=== PATIENT | male | born 1965 | race Caucasian/White ===

== ENCOUNTER → 2017-06-05 | Outpatient (CLI) | payer OTHER ==
--- NOTE | 2017-06-05 09:32 | XR ---
EXAMINATION TYPE: XR cervical spine comp DATE OF EXAM: 06/05/2017 COMPARISON: NONE HISTORY: Neck pain TECHNIQUE: Four views are submitted. FINDINGS: The odontoid is intact. There are no compression deformities. The prevertebral soft tissue structur es are within normal limits. Hypertrophic spurring noted anteriorly. Alignment only documented to th e inferior margin of C6. Facet arthropathy at C5-6 and C6-C7. Mild degenerative disc disease at these levels. IMPRESSION: 1. Multilevel degenerative disc disease and facet arthropathy. See above consider MRI.
== END | disposition home or self-care (01) ==
LOC: RADXRMAIN 09:02
PROVIDERS: ATTEND Internal Medicine
DX: M50.322 Other cervical disc degeneration at C5-C6 level (principal); M46.92 Unspecified inflammatory spondylopathy, cervical region
CPT/HCPCS: 72050

== ENCOUNTER → 2017-07-05 | Outpatient (CLI) | payer OTHER ==
--- NOTE | 2017-07-05 10:44 | CT ---
EXAMINATION TYPE: CT cervical spine wo con DATE OF EXAM: 07/05/2017 COMPARISON: NONE HISTORY: pain CT DLP: 340.5 mGycm Automated exposure control for dose reduction was used. TECHNIQUE: CT scan of the cervical spine is obtained without contrast, axial images are obtained, sa gittal and coronal reformatted images are also reviewed. FINDINGS: Cervical vertebra have normal alignment. Disc spaces are fairly normal. There is mild anter ior spurring at C4-5 C5-6 C6-7. Facet joints are intact. Skull base is intact. There is no evidence o f a fracture. IMPRESSION: Mild degenerative disc changes. No fracture seen.
== END | disposition home or self-care (01) ==
LOC: RADCTMAIN 09:45
PROVIDERS: ATTEND Internal Medicine
DX: M47.812 Spondylosis without myelopathy or radiculopathy, cervical region (principal)
CPT/HCPCS: 72125

== ENCOUNTER → 2018-06-29 | Outpatient (CLI) | payer OTHER ==
--- NOTE | 2018-06-29 09:19 | US ---
EXAMINATION TYPE: US prostate transrectal DATE OF EXAM: 06/29/2018 COMPARISON: NONE CLINICAL HISTORY: N40.0 benign prostatic hyperplasia w/o lower urinary symptoms. Patient states docto r felt prostate was enlarged. No urinary frequency. This examination was performed using the transrectal probe. EXAM MEASUREMENTS: Gland Size: 4.9 x 4.7 x 2.7 cm Volume: 32.88 Predicted PSA: 3.95 Actual PSA (if available):2.4 Increased echogenicity seen in right prostate. Within the left lateral prostate apex there is a 3 x 3 mm hypoechoic area, appearing somewhat cystic. Diffuse heterogeneity of the central zone is noted wi th internal calcifications and heterogenous echotexture. IMPRESSION: 1. Left lateral apical peripheral zone 3 mm hypoechoic lesion and a well-defined hyperechoic right pe ripheral zone apical region. These findings are nonspecific. Correlate with trend in PSA to determine the need for biopsy. Alternatively prostate MRI could be used for further characterization. 2. Heterogenous and mildly enlarged prostate gland indicative of benign prostatic hyperplasia.
== END | disposition home or self-care (01) ==
LOC: RADUSMAIN 07:52
PROVIDERS: ATTEND Family Medicine
DX: N40.0 Benign prostatic hyperplasia without lower urinary tract symptoms (principal); N42.9 Disorder of prostate, unspecified
CPT/HCPCS: 76872

== ENCOUNTER → 2018-12-18 | Outpatient (CLI) | payer OTHER ==
--- NOTE | 2018-12-18 11:01 | XR ---
2 view abdomen HISTORY: Left upper quadrant pain 2 views the abdomen on 3 images No comparisons Lung bases are clear. There is no evident bowel obstruction or pneumoperitoneum. Some air-fluid level s are noted without bowel distention. No pathologic calcification. Bone mineralization is normal, the re is a probable bone island in the right ischium. IMPRESSION: There may be an underlying enteritis or ileus, follow-up as indicated.
== END ==
LOC: RADXRMAIN 10:29
PROVIDERS: ATTEND Family Medicine
DX: R10.12 Left upper quadrant pain (principal)
CPT/HCPCS: 74019

== ENCOUNTER 2019-01-22 11:46 | Day surgery (SDC) | payer OTHER ==
[2019-01-20 11:36] VITALS: BMI 23.8
--- NOTE | 2019-01-22 08:46 | P.GSHP ---
History of Present Illness H&P Date: 01/22/19 CHIEF COMPLAINT: Colon screen HISTORY OF PRESENT ILLNESS: The patient is a 53-year-old male who presents for colon screen. Lower endoscopy was offered for further evaluation and management. PAST MEDICAL HISTORY: Please see list. PAST SURGICAL HISTORY: Please see list. MEDICATIONS: Please see list. ALLERGIES: Please see list. SOCIAL HISTORY: No illicit drug use FAMILY HISTORY: No reports of Crohn disease or ulcerative colitis. REVIEW OF ORGAN SYSTEMS: CONSTITUTIONAL: No reports of fevers or chills. PHYSICAL EXAM: VITAL SIGNS: Stable GENERAL: Well-developed pleasant in no acute distress. HEENT: No scleral icterus. Extraocular movements grossly intact. Moist buccal mucosa. NECK: Supple without lymphadenopathy. CHEST: Unlabored respirations. Equal bilateral excursions. CARDIOVASCULAR: Regular rate and rhythm. Distal 2+ pulses. ABDOMEN: Soft, nontender, nondistended. MUSCULOSKELETAL: No clubbing, cyanosis, or edema. ASSESSMENT: 1. Colon screen. PLAN: 1. Recommend proceeding with a lower endoscopy Past Medical History Past Medical History: GERD/Reflux, Hyperlipidemia, Osteoarthritis (OA), Prostate Disorder Additional Past Medical History / Comment(s): "Prediabetic." History of Any Multi-Drug Resistant Organisms: None Reported Past Surgical History: Hernia Repair Additional Past Surgical History / Comment(s): Bilateral hernia repair, pilonodial cyst removed. Past Anesthesia/Blood Transfusion Reactions: No Reported Reaction Past Psychological History: No Psychological Hx Reported Smoking Status: Former smoker Past Alcohol Use History: Occasional Additional Past Alcohol Use History / Comment(s): Quit smoking 1 month ago, smoked since 14 yrs old, on and off, 1-1/2 pack per week. Past Drug Use History: None Reported - Past Family History Mother Family Medical History: No Reported History Medications and Allergies Home Medications Medication Instructions Recorded Confirmed Type Biotin (Unknown Dose) 1 tab PO DAILY 01/20/19 01/20/19 History Multivitamins, Thera [Multivitamin 1 tab PO DAILY 01/20/19 01/20/19 History (formulary)] Omeprazole Magnesium [PriLOSEC OTC] 20 mg PO BID 01/20/19 01/20/19 History Polyethylene Glycol 3350 [Miralax] 17 gm PO Q48H 01/20/19 01/20/19 History Allergies Allergy/AdvReac Type Severity Reaction Status Date / Time No Known Allergies Allergy Verified 01/20/19 11:38
[~2019-01-22 11:46] MED LIST: LACTATED RINGERS 1,000 ML IV SCH
[2019-01-22 12:19] VITALS: RESP 16; TEMP 97.1
[2019-01-22] MEDS ORDERED: LIDOCAINE 1% 20 ML VIAL (10MG/ML) FOR IV START INTRADERMA ONE (12:26)
[2019-01-22] MEDS ORDERED: MIDAZOLAM 2 MG/2 ML VIAL ONE (13:31)
[2019-01-22] MEDS ORDERED: PROPOFOL 10 MG/ML 20 ML VIAL IV ONE (13:31)
[2019-01-22] MEDS ORDERED: fentaNYL (PF) 50 MCG/ML 2 ML AMP ONE (13:31)
--- NOTE | 2019-01-22 13:58 | P.HPADDEND ---
H&P Addendum H&P Addendum Date: 01/22/19 Patient also reports Gastroesophageal reflux disease unresponsive to antacids. Benefits and risks of endoscopy described. We'll proceed with upper endoscopy for gastroesophageal reflux disease uncontrolled by medications.
--- NOTE | 2019-01-22 14:00 | P.PCN ---
Date of Procedure: 01/22/19 Description of Procedure: PREOPERATIVE DIAGNOSIS: Gastroesophageal reflux disease. POSTOPERATIVE DIAGNOSIS: Gastroesophageal reflux disease. OPERATION: Esophagogastroduodenoscopy with biopsies along antrum. SURGEON: Nazanin Mims MD ANESTHESIA: MAC. INDICATIONS: The patient is a 53-year-old male who presents with a history of reflux disease. Benefits and risks of the procedure were described. Informed consent was obtained. DESCRIPTION: The patient was brought into the endoscopy suite and laid in the left lateral decubitus position. An Olympus gastroscope was passed along the posterior oropharynx down to the distal esophagus where the squamocolumnar junction was encountered at 40 cm from the incisors. The stomach was entered and no bile reflux was found. Additional findings are listed below. Biopsies with cold forceps were obtained of the antrum. The first through third portion of the duodenum was examined and unremarkable. Retroflexion of the scope confirmed Hill grade 1 lower esophageal valve. The squamocolumnar junction demonstrated no LA grade A erosive esophagitis. The stomach was desufflated. The patient tolerated the procedure well. FINDINGS: Squamocolumnar junction 40 cm from the incisors. Diaphragmatic hiatus at 40 cm. Hill grade 1 lower esophageal valve. No LA grade A erosive esophagitis. No active duodenitis. Minimal gastritis RECOMMENDATIONS: Upper endoscopy as needed.
--- NOTE | 2019-01-22 14:03 | P.PCN ---
Date of Procedure: 01/22/19 Description of Procedure: PREOPERATIVE DIAGNOSIS: Colonoscopy screening, first POSTOPERATIVE DIAGNOSIS: Colonoscopy screening, first Descending colon polyp Sigmoid colon polyp OPERATION: Colonoscopy to the ileocecal valve and appendiceal orifice. Colonoscopy with multiple hot snare polypectomies SURGEON: Nazanin Mims MD. ANESTHESIA: MAC. INDICATIONS: The patient is a 53-year-old male who presents for his first colonoscopy screening. Benefits and risks were described and informed consent was obtained. DESCRIPTION OF PROCEDURE: The patient had undergone Gatorade, MiraLAX and Dulcolax prep. He had been brought into the operating room and laid in the left lateral decubitus position. After adequate intravenous sedation, the rectum was examined with 2% lidocaine jelly. Mild external hemorrhoids were encountered. The rectal tone was within normal limits. No lesions were palpated in the rectal vault. An Olympus colonoscope was advanced until the ileocecal valve and appendiceal orifice were clearly viewed. The prep was fair with visualization of the mucosal folds. The scope was removed with visualization of each mucosal fold. No scattered diverticulosis was encountered. Colonic polyps were found and snare polypectomy. No evidence of focal colitis was found. Retroflexion of the scope demonstrated grade 1 internal hemorrhoids without active bleeding or inflammation. The colon was desufflated. The patient had tolerated the procedure well. Withdrawal time was over 6 minutes. FINDINGS: Internal hemorrhoids, grade 1 External hemorrhoids, grade 2. No arteriovenous malformations. No sigmoid diverticulosis. Removal of 2 polyps: - Snare polypectomy 20 cm from the anal verge, 5 mm tubulovillous adenoma polyp. - Snare polypectomy 30 cm from the anal verge, 4 mm flat villous adenoma polyp. No focal colitis. RECOMMENDATIONS: Repeat colonoscopy 5 years, 2023 Plan - Discharge Summary Discharge Rx Participant: No New Discharge Prescriptions: No Action Polyethylene Glycol 3350 [Miralax] 17 gm PO Q48H Multivitamins, Thera [Multivitamin (formulary)] 1 tab PO DAILY Omeprazole Magnesium [PriLOSEC OTC] 20 mg PO BID Biotin (Unknown Dose) 1 tab PO DAILY Discharge Medication List Biotin (Unknown Dose) 1 tab PO DAILY 01/20/19 [History] Multivitamins, Thera [Multivitamin (formulary)] 1 tab PO DAILY 01/20/19 [History] Omeprazole Magnesium [PriLOSEC OTC] 20 mg PO BID 01/20/19 [History] Polyethylene Glycol 3350 [Miralax] 17 gm PO Q48H 01/20/19 [History] Follow up Appointment(s)/Referral(s): Nazanin Mims MD [STAFF PHYSICIAN] - 02/16/19 Patient Instructions/Handouts: Colorectal Polyps (DC), Gastroesophageal Reflux Disease (DC) Discharge Disposition: HOME SELF-CARE
[2019-01-22 14:32] VITALS: BP 128/84; PULSE 84
== END 2019-01-22 14:44 | disposition home or self-care (01) ==
LOC: ORWHC2ENDO 11:46
PROVIDERS: ATTEND Surgery Plastic and Reconstructive Surgery
DX: Z12.11 Encounter for screening for malignant neoplasm of colon (principal); K29.70 Gastritis, unspecified, without bleeding; K64.4 Residual hemorrhoidal skin tags; K63.5 Polyp of colon; K21.9 Gastro-esophageal reflux disease without esophagitis; E78.5 Hyperlipidemia, unspecified; M19.90 Unspecified osteoarthritis, unspecified site; K64.0 First degree hemorrhoids; Z87.891 Personal history of nicotine dependence; Z79.899 Other long term (current) drug therapy
CPT/HCPCS: 88305; 45385; 43239; J2250; J3010; J2704

== ENCOUNTER → 2019-02-04 | Outpatient (CLI) | payer OTHER ==
--- NOTE | 2019-02-04 15:03 | US ---
EXAMINATION TYPE: US gallbladder DATE OF EXAM: 02/04/2019 COMPARISON: NONE CLINICAL HISTORY: K81.9 Cholecystitis, R10.13 Epigastric pain. Cholecystitis. Epigastric pain x 2 mo nths. EXAM MEASUREMENTS: Liver Length: 13.8 cm Gallbladder Wall: 0.24 cm CBD: 0.62 cm Right Kidney: 10.8 x 3.9 x 5.5 cm Pancreas: wnl Liver: slightly coarse? Gallbladder: There is irregular wall thickening. Echogenic foci near wall showing, there is ringdow n artifact. Evidence for sonographic Estrada's sign: No. CBD: wnl Right Kidney: No stones or hydro seen. There is no ascites. IMPRESSION: There may be underlying hepatocellular disease, hepatic steatosis and adenomyomatosis of the gallbladder
--- NOTE | 2019-02-05 08:37 | NM ---
EXAMINATION TYPE: NM hepatobiliary w EF DATE OF EXAM: 02/04/2019 COMPARISON: Ultrasound gallbladder 02/04/2019 HISTORY: Cholecystitis, epigastric pain TECHNIQUE: After the intravenous administration of 4.7 mCi Tc 99m Mebrofenin hepatobiliary scintigrap hy is performed. Immediate images post injection. FINDINGS: There is satisfactory initial accumulation of tracer by the liver. The gallbladder is visualized wit hin a minutes. The small bowel activity is noted within 10 minutes. At one hour 8 ounces of oral en sure plus is given to mimic CCK and gallbladder ejection fraction is calculated at 66 %, in the berna l range. Therefore there is no scintigraphic evidence of cystic or common bile duct obstruction to s uggest acute cholecystitis or gallbladder dyskinesia. IMPRESSION: Somewhat unusual filling and emptying pattern noted of the radiopharmaceutical within the gallbladder corresponds to ultrasound images, somewhat bulbous appearance of the region of the neck of the gallbladder is suspected although ultrasound does not show an appropriate longitudinal view, t here may be folded or septated appearance of the gallbladder. CT scan of the abdomen may be of benefi t.
== END | disposition home or self-care (01) ==
LOC: RADUSMAIN 11:46
PROVIDERS: ATTEND Surgery Plastic and Reconstructive Surgery
DX: R93.2 Abnormal findings on diagnostic imaging of liver and biliary tract (principal); R10.13 Epigastric pain
CPT/HCPCS: 76705; 78226; A9537

== ENCOUNTER 2019-02-18 08:47 | Day surgery (SDC) | payer OTHER ==
[2019-02-17 08:53] VITALS: BMI 24.0
--- NOTE | 2019-02-18 07:56 | P.GSHP ---
History of Present Illness H&P Date: 02/18/19 CHIEF COMPLAINT: Cholecystitis HISTORY OF PRESENT ILLNESS: The patient is a 53-year-old male who presents with history of epigastric including right upper quadrant abdominal pain. He underwent diagnostic studies for the gallbladder. Separately his clinical picture was consistent with cholecystitis. Now he presents for surgical intervention. PAST MEDICAL HISTORY: Please see list PAST SURGICAL HISTORY: Please see list MEDICATIONS: Please see list ALLERGIES: Denies. SOCIAL HISTORY: No illicit drug use or recent tobacco use FAMILY HISTORY: Pertinent for gallbladder disease REVIEW OF ORGAN SYSTEMS: CONSTITUTIONAL: No reports of fevers or chills. HEENT: Denies any troubles with the vision or hearing. ENDOCRINE: No reports of hypothyroidism. No diabetes. RESPIRATORY: No recent pneumonias. CARDIOVASCULAR: Denies chest pain or palpitations GI: No blood in stools or constipation. MUSCULOSKELETAL: Has occasional joint pain including back pain. NEURO: No seizure disorders or headaches. No recent stroke. PSYCH: No depression or suicidal ideation. HEMATOLOGIC: No personal or family history of DVTs or pulmonary emboli. PHYSICAL EXAM: VITAL SIGNS: Afebrile vital signs stable GENERAL: Well-developed pleasant male in no acute distress. HEENT: No scleral icterus. Extraocular movements grossly intact. Moist buccal mucosa. NECK: Supple without lymphadenopathy. CHEST: Unlabored respirations. Equal bilateral excursions. CARDIOVASCULAR: Regular rate regular rhythm rhythm. Distal 2+ pulses. ABDOMEN: Soft, nondistended. Tender along the epigastrium and right upper quadrant. MUSCULOSKELETAL: No clubbing, cyanosis, or edema. NEURO : No focal or lateralizing signs. Cranial nerves II-12 within normal limits. PSYCH: Alert and oriented to person, place and time. SKIN: Well perfused. Good skin turgor. ASSESSMENT: 1. Epigastric and right upper quadrant abdominal pain 2. Chronic cholecystitis PLAN: 1. Will need a robotic cholecystectomy possible open. Benefits and risks were described. 2. Heparin for DVT prophylaxis 5000 units. 3. Antibiotic prophylaxis. Past Medical History Past Medical History: GERD/Reflux, Hyperlipidemia, Osteoarthritis (OA), Prostate Disorder Additional Past Medical History / Comment(s): "Prediabetic." History of Any Multi-Drug Resistant Organisms: None Reported Past Surgical History: Hernia Repair Additional Past Surgical History / Comment(s): Bilateral hernia repair, pilonodial cyst removed, colonoscopy. Past Anesthesia/Blood Transfusion Reactions: No Reported Reaction Smoking Status: Former smoker - Past Family History Mother Family Medical History: No Reported History Medications and Allergies Home Medications Medication Instructions Recorded Confirmed Type Biotin (Unknown Dose) 1 tab PO DAILY 01/20/19 02/17/19 History Multivitamins, Thera [Multivitamin 1 tab PO DAILY 01/20/19 02/17/19 History (formulary)] Allergies Allergy/AdvReac Type Severity Reaction Status Date / Time No Known Allergies Allergy Verified 02/17/19 08:48
[~2019-02-18 08:47] MED LIST changes: +DEXAMETHASONE SOD PHOSPHATE 10 MG/ML 1 ML VIAL IV ONE; +HEPARIN SODIUM,PORCINE 5,000 UNIT/ML 1 ML VIAL SQ ONE; +LIDOCAINE 1% 20 ML VIAL (10MG/ML) FOR IV START INTRADERMA PRN; +MIDAZOLAM 2 MG/2 ML VIAL IV PRN; +ONDANSETRON 4 MG/2 ML VIAL IVP ONE; +SCOPOLAMINE 1.5MG/72HR PATCH TRANSDERM ONE; +ceFAZolin IN SWFI 2 GM/20 ML SYRINGE IVP ONE
[2019-02-18] MEDS ORDERED: INDOCYANINE GREEN 25 MG VIAL IV STA (09:37)
[2019-02-18] MEDS ORDERED: BUPIVACAIN-EPI 0.5%-1:200,000 30 ML VIAL SQ ONE ×2 (09:57→11:59)
[2019-02-18 10:31] LABS: Basophils # (A) 0.1 k/uL (0-0.2); Basophils % (A) 1 %; Eosinophils # (A) 0.4 k/uL (0-0.7); Eosinophils % (A) 4 %; HCT 42.8 % (39.0-53.0); HGB 14.7 gm/dL (13.0-17.5); Lymphocytes # (A) 2.9 k/uL (1.0-4.8); Lymphocytes % (A) 30 %; MCHC 34.2 g/dL (31.0-37.0); MCV 84.8 fL (80.0-100.0); Mean Platelet Volume 7.9; Monocytes # (A) 0.5 k/uL (0-1.0); Monocytes % (A) 6 %; Neutrophils # (A) 5.3 k/uL (1.3-7.7); Neutrophils % (A) 57 %; Platelet Count 265 k/uL (150-450); RBC 5.05 m/uL (4.30-5.90); RDW 13.5 % (11.5-15.5); WBC 9.5 k/uL (3.8-10.6)
[2019-02-18 10:58] LABS: ALT 44 U/L (21-72); AST 29 U/L (17-59); Albumin 4.3 g/dL (3.5-5.0); Alkaline Phosphatase 79 U/L (38-126); Anion Gap 10 mmol/L; Blood Urea Nitrogen 20 mg/dL (9-20); Calcium 9.7 mg/dL (8.4-10.2); Carbon Dioxide 27 mmol/L (22-30); Chloride 104 mmol/L (98-107); Glucose 115 mg/dL (74-99); Potassium 4.6 mmol/L (3.5-5.1); Sodium 141 mmol/L (137-145); Total Bilirubin 1.2 mg/dL (0.2-1.3); Total Protein 7.1 g/dL (6.3-8.2)
[2019-02-18] MEDS ORDERED: INDOCYANINE GREEN 25 MG VIAL IV ONE (11:04)
[2019-02-18] MEDS ORDERED: ePHEDrine SULFATE/0.9% NACL/PF 50 MG/5 ML SYRINGE IV ONE (11:04)
[2019-02-18] MEDS ORDERED: GLYCOPYRROLATE 0.2 MG/ML 2 ML VIAL ONE (11:04)
[2019-02-18] MEDS ORDERED: DEXAMETHASONE SOD PHOS (MDV) 100 MG/10 ML VIAL ONE (11:04)
[2019-02-18] MEDS ORDERED: MIDAZOLAM 2 MG/2 ML VIAL ONE (11:04)
[2019-02-18] MEDS ORDERED: LIDOCAINE 1% INJ 10MG/ML (20 ML MDV) ONE (11:04)
[2019-02-18] MEDS ORDERED: ROCURONIUM BROMIDE 10 MG/ML 10 ML VIAL IV ONE (11:04)
[2019-02-18] MEDS ORDERED: fentaNYL (PF) 50 MCG/ML 2 ML AMP ONE (11:04)
[2019-02-18] MEDS ORDERED: NEOSTIGMINE 1 MG/ML 10 ML VIAL ONE (11:04)
[2019-02-18] MEDS ORDERED: PROPOFOL 10 MG/ML 20 ML VIAL IV ONE (11:04)
[2019-02-18] MEDS ORDERED: LACTATED RINGERS 1,000 ML IV ONE (12:20)
--- NOTE | 2019-02-18 12:48 | P.OP ---
Date of Procedure: 02/18/19 Description of Procedure: SURGEON: NAZANIN MIMS MD PREOPERATIVE DIAGNOSES: 1. Right upper quadrant abdominal pain 2. Chronic cholecystitis POSTOPERATIVE DIAGNOSES: 1. Right upper quadrant abdominal pain 2. Chronic cholecystitis 3. Difficult airway intubation. OPERATION: Robotic-assisted da Betty Xi laparoscopic cholecystectomy, multiport with FIREFLY ESTIMATED BLOOD LOSS: 10 mL. SPECIMENS REMOVED: Gallbladder. COMPLICATIONS: None. OPERATIVE FINDINGS: 1. Chronic cholecystitis with severe pericholecystic adhesions. INDICATIONS: The patient is a 53-year-old male who presents with cholelcystitis. Surgical intervention with a laparoscopic cholecystectomy was described at length including injury to the biliary tree, bleeding, infection, need for further surgery. Informed consent was obtained. Robotic assisted laparoscopic approach was described. Benefits and risks of the procedure including but not limited to bleeding, infection, injury to the biliary tree was described. Informed consent was obtained. DESCRIPTION OF PROCEDURE: Patient was brought to the operating room, placed in supine position. After general induction, the abdomen had been prepped and draped in standard sterile fashion. The robotic da Betty XI system was primed. After a timeout protocol was performed, the patient had been prepped and draped in standard sterile fashion. The patient was injected with indocyanine green. A 5 mm 0 degrees laparoscopic trocar entry was performed along the left upper quadrant. The abdomen insufflated to 15 mmHg pressure which was tolerated well. Diagnostic laparoscopy demonstrated no injury to bowel viscera or mesentery. The liver surface was unremarkable. Next, two 8 mm robotic ports were placed along the right upper abdomen. The camera 8-mm port was maintained along the epigastrium. Another 8 mm port was placed along the left upper abdominal wall after exchanging the 5 mm port. Please note that the ports were placed at least 10 to 15 cm away from the target anatomy of the gallbladder. The robot was docked along the left lateral abdomen. The patient was repositioned in reverse Trendelenburg position. Using a grasper for arm 3, a grasper for arm 4, including hook cautery for arm 1, the robotic system was docked and primed as described. Instruments were interchanged by the salon shampoo assistant including hook cautery, Bovie cautery and clip appliers. I had sat at the console. Moderate to severe pericholecystic adhesions were found and addressed with cautery over 10 minutes. The gallbladder fundus was retracted over the dome of the liver. Initial attention was brought to the infundibulum which was gently retracted in the inferior lateral approach. Using a grasper, the cystic duct including the cystic artery was carefully skeletonized. FIREFLY was used to identify the cystic artery and cystic structures. Large PLASTIC clips were used throughout the entire case. Using a clip photographic process attendant 2 clips were placed proximally, and 1 clip was placed distally along the cystic duct and then cauterized with the cautery. Again care was taken to avoid any injury to the biliary tree as the common bile duct was clearly visualized during this portion of dissection. Next, the cystic artery was similarly clipped and cauterized. Electro-Bovie cautery was used to remove the gallbladder from the hepatic fossa. Hemostasis was checked and found to be adequate. The robot was undocked. I re-scrubbed into the case. Using a 10 mm Endo Catch bag via the left upper quadrant incision, the specimen was removed from the abdominal cavity. All pneumoperitoneum instruments were evacuated from the abdominal cavity. The incisions were reapproximated using 4-0 Monocryl in an interrupted subcuticular fashion. Fascial defects were less than 8 mm in size. Please note along the trocar sites, local anesthetic was placed as a field block prior to insertion of all instruments. Liquid glue was applied to the skin. At the end of the procedure needle, sponge, and instrument count had been verified correct by the rn surgical. The patient was transferred to postanesthesia care unit in stable condition. Intraoperative films were shared with the patient's family who were pleased with the level of care. Console time 25 minutes Plan - Discharge Summary Discharge Rx Participant: Yes New Discharge Prescriptions: New Ibuprofen [Motrin] 600 mg PO Q8HR PRN #30 tab PRN Reason: pain HYDROcodone/APAP 5-325MG [Archer 5-325] 1 tab PO Q6HR PRN 3 Days #10 tab PRN Reason: Pain No Action Multivitamins, Thera [Multivitamin (formulary)] 1 tab PO DAILY Biotin (Unknown Dose) 1 tab PO DAILY Discharge Medication List Biotin (Unknown Dose) 1 tab PO DAILY 01/20/19 [History] Multivitamins, Thera [Multivitamin (formulary)] 1 tab PO DAILY 01/20/19 [History] HYDROcodone/APAP 5-325MG [Archer 5-325] 1 tab PO Q6HR PRN 3 Days #10 tab 02/18/19 [Rx] Ibuprofen [Motrin] 600 mg PO Q8HR PRN #30 tab 02/18/19 [Rx] Follow up Appointment(s)/Referral(s): Nazanin Mims MD [STAFF PHYSICIAN] - 02/23/19 Patient Instructions/Handouts: Laparoscopic Cholecystectomy (DC) Activity/Diet/Wound Care/Special Instructions: May shower. No bath tub soaks. No driving while on narcotics. Low fat diet this Friday.
[2019-02-18 12:54] VITALS: TEMP 98.1
[2019-02-18] MEDS: HYDROmorphone 0.5 MG/0.5 ML SYRINGE IVP PRN ×2 (12:59→13:17)
[2019-02-18 13:21] VITALS: RESP 16
[2019-02-18] MEDS ORDERED: TAMSULOSIN 0.4 MG CAP.ER.24H PO ONE (14:38)
[2019-02-18 17:24] VITALS: BP 148/87; PULSE 100
== END 2019-02-18 17:36 | disposition home or self-care (01) ==
LOC: OR 08:47
PROVIDERS: ATTEND Surgery Plastic and Reconstructive Surgery
DX: K81.1 Chronic cholecystitis (principal); K82.8 Other specified diseases of gallbladder; K21.9 Gastro-esophageal reflux disease without esophagitis; M19.90 Unspecified osteoarthritis, unspecified site; E78.5 Hyperlipidemia, unspecified; Z87.891 Personal history of nicotine dependence; Z79.899 Other long term (current) drug therapy
CPT/HCPCS: 88304; 80053; 85025; 47562; J2250; J1644; J1100 ×2; J2710; J2405; J2001; J3010; J2704; J1170; J0690

== ENCOUNTER → 2020-06-22 | Outpatient (CLI) | payer OTHER | LOC: LABWHC1 10:41 | PROVIDERS: ATTEND Urology | DX: R97.20 Elevated prostate specific antigen [PSA] (principal) | CPT/HCPCS: 36415; 84153 ==

== ENCOUNTER → 2020-12-25 | Outpatient (CLI) | payer OTHER ==
--- NOTE | 2020-12-25 10:08 | US ---
EXAMINATION TYPE: US abdomen limited DATE OF EXAM: 12/25/2020 COMPARISON: NONE CLINICAL HISTORY: 55-year-old male R10.12 left upper quad pain. TECHNIQUE: Assess for hernia at location of: Left upper quadrant. Targeted superficial scanning of t he left upper quadrant. Real-time scanning was performed by the non licensed nuclear equipment operator utilizing Valsalva and a dditional dynamic maneuvers to assess for hernia. FINDINGS: Lot Porter notes: No sonographic evidence for hernia at this time. IMPRESSION: Targeted scanning along the left upper quadrant at the site of pain shows no sonographic evidence for an abdominal wall hernia at this time.
== END | disposition home or self-care (01) ==
LOC: RADUSWWP 08:12
PROVIDERS: ATTEND Family Medicine
DX: R10.12 Left upper quadrant pain (principal)
CPT/HCPCS: 76705

== ENCOUNTER 2020-12-26 09:28 | Observation (INO) | payer OTHER ==
[2020-12-26] MEDS ORDERED: MORPHINE SULFATE 4 MG/ML SYRINGE IV STA (09:58)
[2020-12-26] MEDS ORDERED: ONDANSETRON 4 MG/2 ML VIAL IVP STA (09:58)
[2020-12-26] MEDS ORDERED: FAMOTIDINE 20 MG/2 ML VIAL IV STA (09:58)
[2020-12-26] MEDS ORDERED: SODIUM CHLORIDE 0.9% 1,000 ML IV STA (09:58)
--- NOTE | 2020-12-26 10:01 | ED ---
General Adult HPI - General Chief complaint: Abdominal Pain Stated complaint: Abdominal pain Time Seen by Provider: 12/26/20 09:39 Source: patient, RN notes reviewed Mode of arrival: wheelchair Limitations: no limitations - History of Present Illness Initial comments: Patient is a pleasant 55-year-old male presenting to the emergency Department with complaints of abdominal discomfort. Symptoms have been intermittent and not waxing and waning over the past couple of weeks. Discomfort moderate at this time. Discomfort goes from mild to moderate to severe. Sometimes food makes symptoms worse. Coffee made symptoms worse last night. Patient only drinks alcohol approximately once per week. Patient does have history of previous cholecystectomy. Occasional associated nausea. No vomiting. patient diarrhea. No fevers. No history of similar chronic abdominal discomfort. Discomfort started more in the left side however now is more diffuse. - Related Data Home Medications Medication Instructions Recorded Confirmed Multivitamins, Thera [Multivitamin 1 tab PO DAILY 01/20/19 12/26/20 (formulary)] Biotin 2500mcg 1 tab PO DAILY 12/26/20 12/26/20 Pantoprazole Sodium [Protonix] 40 mg PO DAILY 12/26/20 12/26/20 Previous Rx's Medication Instructions Recorded Ibuprofen [Motrin] 600 mg PO Q8HR PRN #30 tab 02/18/19 Allergies Allergy/AdvReac Type Severity Reaction Status Date / Time No Known Allergies Allergy Verified 12/26/20 10:54 Review of Systems ROS Statement: Those systems with pertinent positive or pertinent negative responses have been documented in the HPI. ROS Other: All systems not noted in ROS Statement are negative. Constitutional: Denies: fever Eyes: Denies: eye pain ENT: Denies: ear pain Respiratory: Denies: cough, dyspnea Cardiovascular: Denies: chest pain Endocrine: Denies: fatigue Gastrointestinal: Reports: as per HPI, abdominal pain, nausea. Denies: vomi ting, diarrhea, constipation Genitourinary: Denies: dysuria Musculoskeletal: Denies: back pain Skin: Denies: rash Neurological: Denies: weakness Past Medical History Past Medical History: GERD/Reflux, Hyperlipidemia, Osteoarthritis (OA), Prostate Disorder Additional Past Medical History / Comment(s): "Prediabetic." History of Any Multi-Drug Resistant Organisms: None Reported Past Surgical History: Hernia Repair Additional Past Surgical History / Comment(s): Bilateral hernia repair, pilonodial cyst removed, colonoscopy. Past Anesthesia/Blood Transfusion Reactions: No Reported Reaction Past Psychological History: No Psychological Hx Reported Smoking Status: Current every day smoker Past Alcohol Use History: Occasional Past Drug Use History: None Reported - Past Family History Mother Family Medical History: No Reported History General Exam Limitations: no limitations General appearance: alert, in no apparent distress Head exam: Present: normocephalic Eye exam: Present: normal appearance Neck exam: Present: normal inspection Respiratory exam: Present: normal lung sounds bilaterally Cardiovascular Exam: Present: regular rate, normal rhythm Expanded Peripheral pulses: 2+: Posterior Tibialis (R), Posterior Tibialis (L) GI/Abdominal exam: Present: soft, tenderness (Mild to moderate tenderness lower abdomen and epigastrium.), normal bowel sounds. Absent: distended, guarding, rebound, rigid, pulsatile mass Extremities exam: Present: normal inspection. Absent: pedal edema, calf tenderness Neurological exam: Present: alert Psychiatric exam: Present: normal affect, normal mood Skin exam: Present: normal color Course Vital Signs 12/26/20 12/26/20 09:35 11:15 Temperature 98.5 F Pulse Rate 94 93 Respiratory 18 18 Rate Blood Pressure 167/82 131/79 O2 Sat by Pulse 99 100 Oximetry EKG Findings - EKG Comments: EKG Findings:: Normal sinus rhythm and 90. ID 132. QRS 78. QT 344. QTC 420. Normal axis. Normal QRS. No acute ST change. Medical Decision Making - Medical Decision Making Patient reevaluated and resting comfortably in bed. Abdomen exam is soft with mild diffuse tenderness. Patient states he still feels lousy. Case discussed with Dr. Pringle, who will admit covering for Dr. Reveles. Gastroenterology will be placed on consult - Lab Data Result diagrams: 12/26/20 10:17 12/26/20 10:17 Lab Results 12/26/20 12/26/20 12/26/20 Range/Units 10:17 10:17 10:17 WBC 10.6 (3.8-10.6) k/uL RBC 5.40 (4.30-5.90) m/uL Hgb 16.4 (13.0-17.5) gm/dL Hct 47.5 (39.0-53.0) % MCV 88.0 (80.0-100.0) fL MCH 30.3 (25.0-35.0) pg MCHC 34.5 (31.0-37.0) g/dL RDW 12.6 (11.5-15.5) % Plt Count 252 (150-450) k/uL MPV 6.7 Neutrophils % 71 % Lymphocytes % 19 % Monocytes % 4 % Eosinophils % 3 % Basophils % 1 % Neutrophils # 7.5 (1.3-7.7) k/uL Lymphocytes # 2.1 (1.0-4.8) k/uL Monocytes # 0.5 (0-1.0) k/uL Eosinophils # 0.3 (0-0.7) k/uL Basophils # 0.1 (0-0.2) k/uL PT 10.3 (9.0-12.0) sec INR 1.0 (<1.2) APTT 23.3 (22.0-30.0) sec Sodium (137-145) mmol/L Potassium (3.5-5.1) mmol/L Chloride (98-107) mmol/L Carbon Dioxide (22-30) mmol/L Anion Gap mmol/L BUN (9-20) mg/dL Creatinine (0.66-1.25) mg/dL Est GFR (CKD-EPI)AfAm (>60 ml/min/1.73 sqM) Est GFR (CKD-EPI)NonAf (>60 ml/min/1.73 sqM) Glucose (74-99) mg/dL Calcium (8.4-10.2) mg/dL Total Bilirubin (0.2-1.3) mg/dL AST (17-59) U/L ALT (4-49) U/L Alkaline Phosphatase (38-126) U/L Creatine Kinase (55-170) U/L Troponin I (0.000-0.034) ng/mL Total Protein (6.3-8.2) g/dL Albumin (3.5-5.0) g/dL Amylase (30-110) U/L Lipase (23-300) U/L Urine Color Light Yellow Urine Appearance Clear (Clear) Urine pH 7.0 (5.0-8.0) Ur Specific Cook 1.013 (1.001-1.035) Urine Protein Negative (Negative) Urine Glucose (UA) Negative (Negative) Urine Ketones Negative (Negative) Urine Blood Negative (Negative) Urine Nitrite Negative (Negative) Urine Bilirubin Negative (Negative) Urine Urobilinogen <2.0 (<2.0) mg/dL Ur Leukocyte Esterase Negative (Negative) 12/26/20 12/26/20 Range/Units 10:17 10:17 WBC (3.8-10.6) k/uL RBC (4.30-5.90) m/uL Hgb (13.0-17.5) gm/dL Hct (39.0-53.0) % MCV (80.0-100.0) fL MCH (25.0-35.0) pg MCHC (31.0-37.0) g/dL RDW (11.5-15.5) % Plt Count (150-450) k/uL MPV Neutrophils % % Lymphocytes % % Monocytes % % Eosinophils % % Basophils % % Neutrophils # (1.3-7.7) k/uL Lymphocytes # (1.0-4.8) k/uL Monocytes # (0-1.0) k/uL Eosinophils # (0-0.7) k/uL Basophils # (0-0.2) k/uL PT (9.0-12.0) sec INR (<1.2) APTT (22.0-30.0) sec Sodium 138 (137-145) mmol/L Potassium 4.3 (3.5-5.1) mmol/L Chloride 99 (98-107) mmol/L Carbon Dioxide 26 (22-30) mmol/L Anion Gap 13 mmol/L BUN 20 (9-20) mg/dL Creatinine 1.16 (0.66-1.25) mg/dL Est GFR (CKD-EPI)AfAm 81 (>60 ml/min/1.73 sqM) Est GFR (CKD-EPI)NonAf 70 (>60 ml/min/1.73 sqM) Glucose 138 H (74-99) mg/dL Calcium 10.1 (8.4-10.2) mg/dL Total Bilirubin 1.5 H (0.2-1.3) mg/dL AST 35 (17-59) U/L ALT 42 (4-49) U/L Alkaline Phosphatase 94 (38-126) U/L Creatine Kinase 69 (55-170) U/L Troponin I <0.012 (0.000-0.034) ng/mL Total Protein 8.2 (6.3-8.2) g/dL Albumin 5.2 H (3.5-5.0) g/dL Amylase 110 (30-110) U/L Lipase 101 (23-300) U/L Urine Color Urine Appearance (Clear) Urine pH (5.0-8.0) Ur Specific Cook (1.001-1.035) Urine Protein (Negative) Urine Glucose (UA) (Negative) Urine Ketones (Negative) Urine Blood (Negative) Urine Nitrite (Negative) Urine Bilirubin (Negative) Urine Urobilinogen (<2.0) mg/dL Ur Leukocyte Esterase (Negative) - Radiology Data Radiology results: report reviewed (Computed tomography scan abdomen pelvis: Correlate for enteritis, cannot exclude pancreatitis.) Disposition Clinical Impression: Abdominal pain Disposition: ADMITTED IP TO THIS [facility] Is patient prescribed a controlled substance at d/c from ED?: No Referrals: Javy Reveles DO [Primary Care Provider] - 1-2 days Decision Time: 11:57
[2020-12-26 10:34] LABS: Basophils # (A) 0.1 k/uL (0-0.2); Basophils % (A) 1 %; Eosinophils # (A) 0.3 k/uL (0-0.7); Eosinophils % (A) 3 %; HCT 47.5 % (39.0-53.0); HGB 16.4 gm/dL (13.0-17.5); Lymphocytes # (A) 2.1 k/uL (1.0-4.8); Lymphocytes % (A) 19 %; MCH 30.3 pg (25.0-35.0); MCHC 34.5 g/dL (31.0-37.0); Mean Platelet Volume 6.7; Monocytes # (A) 0.5 k/uL (0-1.0); Monocytes % (A) 4 %; Neutrophils # (A) 7.5 k/uL (1.3-7.7); Neutrophils % (A) 71 %; Platelet Count 252 k/uL (150-450); RDW 12.6 % (11.5-15.5); WBC 10.6 k/uL (3.8-10.6)
[2020-12-26 10:35] LABS: Appearance,Urine Clear (Clear); Bilirubin,Urine Negative (Negative); Blood,Urine Negative (Negative); Color,Urine Light Yellow; Glucose,Urine (UA) Negative (Negative); Ketones,Urine Negative (Negative); Leukocyte Esterase,Urine Negative (Negative); Nitrite,Urine Negative (Negative); Protein,Urine Negative (Negative); Specific Gravity,Urine 1.013 (1.001-1.035); Urobilinogen,Urine <2.0 mg/dL (<2.0)
[2020-12-26 10:48] LABS: Albumin 5.2 g/dL (3.5-5.0); Calcium 10.1 mg/dL (8.4-10.2); Potassium 4.3 mmol/L (3.5-5.1); Total Bilirubin 1.5 mg/dL (0.2-1.3); Total Protein 8.2 g/dL (6.3-8.2)
[2020-12-26 10:53] LABS: Partial Thromboplastin Time 23.3 sec (22.0-30.0); Prothrombin Time 10.3 sec (9.0-12.0)
--- NOTE | 2020-12-26 11:22 | CT ---
EXAMINATION TYPE: CT abdomen pelvis w con DATE OF EXAM: 12/26/2020 COMPARISON: HISTORY: Stomach pain, upper abdominal pain radiating into chest CT DLP: 689.1 mGycm Automated exposure control for dose reduction was used. TECHNIQUE: Helical acquisition of images from the lung bases through the pelvis have been completed. CONTRAST: Performed without Oral Contrast and with IV Contrast, patient injected with 100 mL of Isovue 300. FINDINGS: LUNG BASES: No significant abnormality is appreciated. AORTA: No significant abnormality is appreciated. LIVER/GB: Patient is post cholecystectomy, liver shows no mass, mild dilation of the biliary ducts is likely due to postcholecystectomy change. PANCREAS: Question some mild heterogeneity of density in the head of the pancreas, no definite inflam matory change SPLEEN: No significant abnormality is seen. ADRENALS: No significant abnormality is seen. KIDNEYS: No significant abnormality is seen. REPRODUCTIVE ORGANS: Prostate is enlarged, there is associated calcification, inferior impression on the urinary bladder BOWEL: The appendix is normal. There are some fluid-filled bowel loops present. No bowel obstruction . Cecum is present within the pelvis. FREE AIR: No Free Air visible. ASCITES: None visible. PELVIC ADENOPATHY: None visualized. RETROPERITONEAL ADENOPATHY: No Retroperitoneal Adenopathy visible. URINARY BLADDER: Thickened wall may be due to chronic outlet obstruction OSSEOUS STRUCTURES: No significant abnormality is seen. IMPRESSION: CORRELATE FOR POSSIBLE ENTERITIS. CANNOT EXCLUDE PANCREATITIS.
[2020-12-26] MEDS ORDERED: ONDANSETRON 4 MG/2 ML VIAL IVP PRN (11:57)
[2020-12-26] MEDS ORDERED: NALOXONE 0.4 MG/ML 1 ML VIAL IV PRN (11:57)
[2020-12-26] MEDS ORDERED: PANTOPRAZOLE 40 MG/10 ML VIAL IV SCH (12:00)
[2020-12-26] MEDS: MORPHINE SULFATE 4 MG/ML SYRINGE IV PRN ×2 (12:14→16:48)
[2020-12-26] MEDS: SODIUM CHLORIDE 0.9% 1,000 ML IV SCH ×2 (12:23→20:30)
[2020-12-26] MEDS: ENOXAPARIN 40 MG/0.4 ML SYRINGE SQ SCH (20:30)
--- NOTE | 2020-12-26 22:41 | P.HPIM ---
History of Present Illness H&P Date: 12/26/20 Chief Complaint: Not feeling well History of presenting complaint: This is a 55-year-old patient who follows Dr. Viola Reveles. Chronic stable medical conditions include GERD, hyperlipidemia, or strength redness, BPH, smoker. For 2 weeks patient with having some nonspecific abdominal pain. He describes as a pain starting in the left lower quadrant and goes across. S ometimes going upwards 2. Patient not feeling well for last 4 days. Some sometimes has to to stop his work. Has noted increased belching. Denies any fever and chills no nausea vomiting. Appetite has been okay. Normally has one or 2 bowel movements every day. Review of systems: GEN.: Tired EYES: None HEENT: None NECK: None RESPIRATORY: None CARDIOVASCULAR: None GASTROINTESTINAL: As above GENITOURINARY: None MUSCULOSKELETAL: None LYMPHATICS: None HEMATOLOGICAL: None PSYCHIATRY: None NEUROLOGICAL: None Past medical history to include: GERD, hyperlipidemia, osteoporosis, prostate disorder, prediabetic Social history: Smoking since age of 14. About a pack and a half a day. Chronic cutback in the last few weeks. Alcohol occasionally. Technetium and does set up. . Denies use of recreational drugs. Family history: Reviewed, noncontributory to presentation Physical examination: VITAL SIGNS: 98.5, 94, 18, 131.79, 99% room air GENERAL: BMI 24.2, laying in bed, not in distress. EYES: Pupils equal. Conjunctiva normal. HEENT: External appearance of nose and ears normal, oral cavity grossly normal. NECK: JVD not raised; masses not palpable. HEART: First and second heart sounds are normal; no edema. LUNGS: Respiratory rate normal; clear to auscultation. ABDOMEN: Soft, minimal tenderness, liver spleen not palpable, no masses palpable. PSYCH: Alert and oriented x3; mood and affect normal. NEUROLOGICAL: Cranial nerves grossly intact; no facial asymmetry, power and sensation grossly intact. LYMPHATICS: No lymph nodes palpable in the axilla and neck INVESTIGATIONS, reviewed in the clinical context: White count 10.6 hemoglobin 16.4 platelets 252 potassium 4.3 creatinine 1.16 Total bilirubin 1.5 Troponin I less than 0.012 amylase 101 high pains 101 UA negative Coronary minus [PCR]-not detected EKG tracing personally reviewed by me-no sinus rhythm Computed tomography scan of the abdomen and pelvis with contrast-status post cholecystectomy. 6. Question some mild heterogenicity of the density in the head of the pancreas. Some fluid-filled bowel loops present. Assessment and plan: -This is a patient for 2 weeks been having nonspecific abdominal discomfort. Belching. No fever no chills. Feels a bit off. Denies any fever and chills. No nausea vomiting. Patient's computed tomography scan is rather unremarkable except for some fluid-filled bowel loops. Patient may have a viral enteritis. Patient be put on a clear liquid diet. Consult GI. -GERD, continue Protonix. -Hyperlipidemia -Primary osteoarthritis, use Tylenol when necessary -Chronic nicotine dependence cigarette smoker, nicotine patch Past Medical History Past Medical History: GERD/Reflux, Hyperlipidemia, Osteoarthritis (OA), Prostate Disorder Additional Past Medical History / Comment(s): "Prediabetic." History of Any Multi-Drug Resistant Organisms: None Reported Past Surgical History: Hernia Repair Additional Past Surgical History / Comment(s): Bilateral hernia repair, pilonodial cyst removed, colonoscopy. Past Anesthesia/Blood Transfusion Reactions: No Reported Reaction Past Psychological History: No Psychological Hx Reported Smoking Status: Current some day smoker Past Alcohol Use History: Occasional Additional Past Alcohol Use History / Comment(s): Quit smoking 2 months ago, smoked since 14 yrs old, on and off, 1-1/2 pack per week. Past Drug Use History: None Reported - Past Family History Mother Family Medical History: No Reported History Medications and Allergies Home Medications Medication Instructions Recorded Confirmed Type Multivitamins, Thera [Multivitamin 1 tab PO DAILY 01/20/19 12/26/20 History (formulary)] Ibuprofen [Motrin] 600 mg PO Q8HR PRN #30 tab 02/18/19 12/26/20 Rx Biotin 2500mcg 1 tab PO DAILY 12/26/20 12/26/20 History Pantoprazole Sodium [Protonix] 40 mg PO DAILY 12/26/20 12/26/20 History Allergies Allergy/AdvReac Type Severity Reaction Status Date / Time No Known Allergies Allergy Verified 12/26/20 10:54 Physical Exam Vitals: Vital Signs Temp Pulse Pulse Resp BP BP Pulse Ox 12/26/20 14:50 97.6 F 85 16 125/76 99 12/26/20 13:13 98.0 F 84 16 130/77 98 12/26/20 11:15 93 18 131/79 100 12/26/20 09:35 98.5 F 94 18 167/82 99 Intake and Output 12/26/20 12/26/20 12/26/20 06:59 14:59 22:59 Other: # Voids 1 Weight 68.039 kg Results CBC & Chem 7: 12/26/20 10:17 12/26/20 10:17 Labs: Abnormal Lab Results - Last 24 Hours (Table) 12/26/20 Range/Units 10:17 Glucose 138 H (74-99) mg/dL Total Bilirubin 1.5 H (0.2-1.3) mg/dL Albumin 5.2 H (3.5-5.0) g/dL Thrombosis Risk Factor Assmnt - Choose All That Apply Each Factor Represents 1 point: Age 41-60 years Thrombosis Risk Factor Assessment Total Risk Factor Score: 1 Thrombosis Risk Factor Assessment Level: Low Risk
[2020-12-27] MEDS ORDERED: HYDROmorphone 0.5 MG/0.5 ML SYRINGE IVP PRN (03:03)
[2020-12-27] MEDS: SODIUM CHLORIDE 0.9% 1,000 ML IV SCH ×3 (03:22→23:57)
[2020-12-27] MEDS: SIMETHICONE 80 MG CHEWABLE PO SCH ×4 (07:32→20:55)
[2020-12-27] MEDS: MULTIVITAMINS, THERA 1 EACH TAB PO SCH (07:34)
[2020-12-27] MEDS: FAMOTIDINE 20 MG TAB PO SCH ×2 (07:34→20:55)
[2020-12-27 10:12] LABS: African American GFR (CKD) 77.3 (60.0-200.0); Albumin 4.5 g/dL (3.80-4.90); Anion Gap 8.1 mmol/L (4.00-12.00); BUN/Creat Ratio 10.83 Ratio (12.00-20.00); Calcium 8.9 mg/dL (8.7-10.3); Carbon Dioxide 29.9 mmol/L (21.6-31.8); Globulin 1.5 g/dL (1.6-3.3); Non-African American GFR(CKD) 66.7 (60.0-200.0); Potassium 4.3 mmol/L (3.5-5.5); Total Bilirubin 2.3 mg/dL (0.2-1.2)
--- NOTE | 2020-12-27 11:01 | ECHOF ---
Referral Reason:assess LV function MEASUREMENTS -------- HEIGHT: 167.6 cm WEIGHT: 68.0 kg BP: 143/88 RVIDd: 4.4 cm (< 3.3) IVSd: 1.3 cm (0.6 - 1.1) LVIDd: 3.4 cm (3.9 - 5.3) LVPWd: 1.3 cm (0.6 - 1.1) IVSs: 1.8 cm LVIDs: 2.3 cm LVPWs: 1.7 cm LAESV Index (A-L): 15.23 ml/m Ao Diam: 3.1 cm (2.0 - 3.7) AV Cusp: 1.8 cm (1.5 - 2.6) LA Diam: 2.9 cm (2.7 - 3.8) MV EXCURSION: 14.273 mm (> 18.000) MV EF SLOPE: 90 mm/s (70 - 150) EPSS: 0.2 cm MV E Cuate: 0.97 m/s MV DecT: 142 ms MV A Cuate: 0.90 m/s MV E/A Ratio: 1.07 RAP: 5.00 mmHg RVSP: 12.70 mmHg FINDINGS -------- Sinus rhythm. This was a technically difficult study with suboptimal views. The left ventricular size is normal. There is mild concentric left ventricular hypertrophy. Overa ll left ventricular systolic function is normal with, an EF between 55 - 60 %. The right ventricle is moderately enlarged. Normal LA size by volume 22+/-6 ml/m2. The right atrial size is normal. xx ml of Lumason was utilized for enhancement of images. Interatrial and interventricular septum intact. The aortic valve is trileaflet, and appears structurally normal. No aortic stenosis or regurgitation. The mitral valve is normal. No mitral regurgitation. Trace tricuspid regurgitation present. There is no evidence of pulmonary hypertension. The right ventricular systolic pressure, as measured by Doppler, is 12.70mmHg. There is no pulmonic regurgitation present. The aortic root size is normal. IVC Not well visulized. There is no pericardial effusion. CONCLUSIONS -------- 1. This was a technically difficult study with suboptimal views. 2. There is mild concentric left ventricular hypertrophy. 3. Overall left ventricular systolic function is normal with, an EF between 55 - 60 %. 4. The right ventricle is moderately enlarged. 5. Normal LA size by volume 22+/-6 ml/m2. 6. The aortic valve is trileaflet, and appears structurally normal. No aortic stenosis or regurgitati on. 7. The mitral valve is normal. 8. Trace tricuspid regurgitation present. 9. There is no pericardial effusion. NET PROGRAMMER: Clarice Alvarez RDCS
[2020-12-27] MEDS: ENOXAPARIN 40 MG/0.4 ML SYRINGE SQ SCH (13:35)
--- NOTE | 2020-12-27 14:16 | US ---
EXAMINATION TYPE: US liver DATE OF EXAM: 12/27/2020 COMPARISON: CT CLINICAL HISTORY: elevated liver enzymes, abdominal pain. Gallbladder removed 2 years ago; RUQ pain t [place] EXAM MEASUREMENTS: Liver Length: 15.2 cm Gallbladder Wall: surgically removed CBD: 0.8 cm Right Kidney: 10.0 x 6.2 x 3.8 cm Pancreas: hyperechoic Liver: wnl Gallbladder: surgically absent Evidence for sonographic Estrada's sign: no CBD: size is wnl post laparoscopic cholecystectomy Right Kidney: wnl IMPRESSION: 1. Postcholecystectomy with no acute process.
--- NOTE | 2020-12-27 23:40 | P.PN ---
Progress Note - Text Progress Note Date: 12/27/20 Chief Complaint: Not feeling well History of presenting complaint: This is a 55-year-old patient who follows Dr. Viola Reveles. Chronic stable medical conditions include GERD, hyperlipidemia, or strength redness, BPH, smoker. For 2 weeks patient with having some nonspecific abdominal pain. He describes as a pain starting in the left lower quadrant and goes across. Sometimes going upwards 2. Patient not feeling well for last 4 days. Some sometimes has to to stop his work. Has noted increased belching. Denies any fever and chills no nausea vomiting. Appetite has been okay. Normally has one or 2 bowel movements every day. Admitted with abdominal pain. LFTs are bumped up to date. No nausea vomiting. Tired. GI following. Review of systems: Was done for constitutional, cardiovascular, GI, pulmonary. relevant finding as above Active Medications Enoxaparin Sodium (Enoxaparin 40 Mg/0.4 Ml Syringe) 40 mg SQ DAILY [facility] Last Admin: 12/27/20 13:35 Dose: 40 mg Documented by: Famotidine (Famotidine 20 Mg Tab) 20 mg PO BID [facility] Last Admin: 12/27/20 20:55 Dose: 20 mg Documented by: Hydromorphone HCl (Hydromorphone 0.5 Mg/0.5 Ml Syringe) 0.5 mg IVP Q4HR PRN PRN Reason: Pain Last Admin: 12/27/20 03:21 Dose: 0.5 mg Documented by: Sodium Chloride (Saline 0.9%) 1,000 mls @ 120 mls/hr IV .Q8H20M [facility] Last Admin: 12/27/20 11:40 Dose: 120 mls/hr Documented by: Multivitamins (Multivitamins, Thera 1 Each Tab) 1 each PO DAILY [facility] Last Admin: 12/27/20 07:34 Dose: 1 each Documented by: Naloxone HCl (Naloxone 0.4 Mg/Ml 1 Ml Vial) 0.2 mg IV Q2M PRN PRN Reason: Opioid Reversal Ondansetron HCl (Ondansetron 4 Mg/2 Ml Vial) 4 mg IVP Q8HR PRN PRN Reason: Nausea And Vomiting Simethicone (Simethicone 80 Mg Chewable) 40 mg PO QID [facility] Last Admin: 12/27/20 20:55 Dose: 40 mg Documented by: Past medical history to include: GERD, hyperlipidemia, osteoporosis, prostate disorder, prediabetic Social history: Smoking since age of 14. About a pack and a half a day. Chronic cutback in the last few weeks. Alcohol occasionally. Technetium and does set up. . Denies use of recreational drugs. Family history: Reviewed, noncontributory to presentation Physical examination: VITAL SIGNS: 98.780, 16, 124/75, 99% room air GENERAL: BMI 24.2, laying in bed, not in distress. EYES: Pupils equal. Conjunctiva normal. HEENT: External appearance of nose and ears normal, oral cavity grossly normal. NECK: JVD not raised; masses not palpable. HEART: First and second heart sounds are normal; no edema. LUNGS: Respiratory rate normal; clear to auscultation. ABDOMEN: Soft, no tenderness, liver spleen not palpable, no masses palpable. PSYCH: Alert and oriented x3; mood and affect normal. INVESTIGATIONS, reviewed in the clinical context: December 27: Potassium 4.3 creatinine 1.2 bilirubin 2.3 AST 200 ALT 311 alkaline phosphatase 134 White count 10.6 hemoglobin 16.4 platelets 252 potassium 4.3 creatinine 1.16 Total bilirubin 1.5 Troponin I less than 0.012 amylase 101 high pains 101 UA negative Coronary minus [PCR]-not detected EKG tracing personally reviewed by me-no sinus rhythm Computed tomography scan of the abdomen and pelvis with contrast-status post cholecystectomy. 6. Question some mild heterogenicity of the density in the head of the pancreas. Some fluid-filled bowel loops present. Assessment and plan: -Acute hepatitis with some obstructive patient. Patient had a history of cholecystectomy before. Patient may have a stone in the remnant bile duct. No fever. No abdominal discomfort. -GERD, continue Protonix. -Hyperlipidemia -Primary osteoarthritis, use Tylenol when necessary -Chronic nicotine dependence cigarette smoker, nicotine patch Continue IV fluids. Repeat labs in the morning. Follow with GI. Discussed with patient.
[2020-12-28] MEDS: SODIUM CHLORIDE 0.9% 1,000 ML IV SCH (05:48)
[2020-12-28 07:34] VITALS: BP 146/82; PULSE 80; TEMP 97.5
[2020-12-28] MEDS: SIMETHICONE 80 MG CHEWABLE PO SCH (08:29)
[2020-12-28] MEDS: MULTIVITAMINS, THERA 1 EACH TAB PO SCH (08:30)
[2020-12-28] MEDS: FAMOTIDINE 20 MG TAB PO SCH (08:30)
[2020-12-28] MEDS: ENOXAPARIN 40 MG/0.4 ML SYRINGE SQ SCH (09:12)
[2020-12-28 09:39] LABS: African American GFR (CKD) 109.5 (60.0-200.0); Albumin 4.2 g/dL (3.80-4.90); Anion Gap 9.2 mmol/L (4.00-12.00); Calcium 8.8 mg/dL (8.7-10.3); Carbon Dioxide 25.8 mmol/L (21.6-31.8); Globulin 1.4 g/dL (1.6-3.3); Non-African American GFR(CKD) 94.5 (60.0-200.0); Total Bilirubin 1.7 mg/dL (0.2-1.2); Total Protein 5.6 g/dL (6.2-8.2)
[2020-12-28 10:14] VITALS: RESP 20
--- NOTE | 2020-12-28 12:15 | P.CONS ---
History of Present Illness - Reason for Consult Consult date: 12/27/20 Abdominal pain, elevated liver enzymes Requesting physician: Tarun Pringle - Chief Complaint Abdominal pain - History of Present Illness 55-year-old male with medical history significant for tobacco abuse, BPH, hyperlipidemia and GERD who presented to the hospital for evaluation of abdominal pain. Patient has been having ongoing abdominal pain in the left upper quadrant of his abdomen occurring over the past few weeks. Pain is sharp in nature and intense. He is status post cholecystectomy in the past. He presented to the hospital for further evaluation of pain which he described as sharp and in the right upper quadrant of his abdomen. He had a computed tomogr aphy scan on presentation showing a liver with no masses with mild biliary dilation and evidence of prior cholecystectomy and some mild heterogenicity in the head of the pancreas possibly related to inflammation as well as some fluid- filled bowel suggestive of enteritis. He denies any nausea or vomiting. He previously underwent EGD and colonoscopy in 2019 with findings of early grade a esophagitis and mild gastritis as well as polypectomy and internal hemorrhoids. Patient's liver enzymes slightly elevated today with total bilirubin 2.3, alkaline phosphatase 134, AST 200 and ALT 311 with amylase 96 and lipase 36, hemoglobin 16.4 and platelet count 10.6. Review of Systems REVIEW OF SYSTEMS: CONSTITUTIONAL: Denies any fevers, chills, weight change or fatigue. CARDIOVASCULAR: Denies any chest pain, palpitations high or low blood pressures RESPIRATORY: Denies any shortness of breath, hemoptysis or cough. GENITOURINARY: No dysuria or hematuria. MUSCULOSKELETAL: No weakness reported. SKIN: Denies any new rashes or lesions, jaundice or pallor. PSYCHIATRIC: Denies any depression or anxiety, tobacco abuse. NEUROLOGY: Denies headache, denies any new focal deficits. EARS/NOSE/THROAT: No recent hearing change, congestion, nasal discharge or sore throat. EYES: No pain in eyes, discharge or change in vision. GASTROINTESTINAL: As per HPI. Past Medical History Past Medical History: GERD/Reflux, Hyperlipidemia, Osteoarthritis (OA), Prostate Disorder Additional Past Medical History / Comment(s): "Prediabetic." History of Any Multi-Drug Resistant Organisms: None Reported Past Surgical History: Hernia Repair Additional Past Surgical History / Comment(s): Bilateral hernia repair, p ilonodial cyst removed, colonoscopy. Past Anesthesia/Blood Transfusion Reactions: No Reported Reaction Past Psychological History: No Psychological Hx Reported Smoking Status: Current some day smoker Past Alcohol Use History: Occasional Additional Past Alcohol Use History / Comment(s): Quit smoking 2 months ago, smoked since 14 yrs old, on and off, 1-1/2 pack per week. Past Drug Use History: None Reported - Past Family History Mother Family Medical History: No Reported History Medications and Allergies Home Medications Medication Instructions Recorded Confirmed Type Multivitamins, Thera [Multivitamin 1 tab PO DAILY 01/20/19 12/26/20 History (formulary)] Ibuprofen [Motrin] 600 mg PO Q8HR PRN #30 tab 02/18/19 12/26/20 Rx Biotin 2500mcg 1 tab PO DAILY 12/26/20 12/26/20 History Pantoprazole Sodium [Protonix] 40 mg PO DAILY 12/26/20 12/26/20 History Allergies Allergy/AdvReac Type Severity Reaction Status Date / Time No Known Allergies Allergy Verified 12/26/20 10:54 Physical Exam Vitals: Vital Signs Temp Pulse Pulse Resp BP BP Pulse Ox 12/27/20 07:00 97.8 F 72 18 132/86 100 12/27/20 02:00 97.9 F 80 17 143/88 100 12/26/20 20:00 98.4 F 85 17 131/75 100 12/26/20 14:50 97.6 F 85 16 125/76 99 12/26/20 13:13 98.0 F 84 16 130/77 98 Intake and Output 12/26/20 12/27/20 12/27/20 22:59 06:59 14:59 Intake Total 960 960 Balance 960 960 Intake: Intake, IV Titration 960 960 Amount Sodium Chloride 0.9% 1, 960 960 000 ml @ 120 mls/hr IV . Q8H20M [facility] Rx#:[id number] Other: Voiding Method Toilet Toilet # Voids 2 On physical examination, patient appears comfortable in no apparent distress. HEAD: Normocephalic, atraumatic. EYES: No scleral icterus. No conjunctival injection. MOUTH: No lesions, tongue midline. NECK: Trachea midline, no gross abnormalities. CHEST: Clear to auscultation with no wheezing or rhonchi appreciated. HEART: Regular rate and rhythm. ABDOMEN: Soft, nontender to palpation. Bowel sounds are positive. No organomegaly. No guarding or rigidity. EXTREMITIES: No pedal edema. SKIN: No rashes, no jaundice. NEUROLOGIC: Alert and oriented x3. No focal deficits. Results CBC & Chem 7: 12/26/20 10:17 12/28/20 05:45 Labs: Abnormal Lab Results - Last 24 Hours (Table) 12/27/20 Range/Units 05:29 BUN/Creatinine Ratio 10.83 L (12.00-20.00) Ratio Total Bilirubin 2.3 H (0.2-1.2) mg/dL AST 200 H (14-35) U/L ALT 311 H (10-49) U/L Alkaline Phosphatase 134 H (41-126) U/L Total Protein 6.0 L (6.2-8.2) g/dL Globulin 1.5 L (1.6-3.3) g/dL CT scan - abdomen: report reviewed (Computed tomography scan of the abdomen with findings of fluid-filled bowels related to possible enteritis, mild biliary dilation status post cholecystectomy with some mild heterogenicity in the head of the pancreas unclear if related to pancreatitis.) Assessment and Plan (1) Elevated liver enzymes Narrative/Plan: 55-year-old male with multiple medical comorbidities including prior cholecystectomy presenting for abdominal pain. Originally pain admission in the left upper quadrant for the past few weeks but then he developed sharp significant pain in the right upper quadrant of the abdomen. Computed tomography scan on presentation showed some fluid-filled bowels suggestive of possible enteritis as well as some mild biliary dilation and prior cholecystectomy as well as some mild heterogenicity in the head of the pancreas. Liver enzymes normal presentation subsequently increased with total bilirubin 2.3, alkaline phosphatase 134, AST 200 and ALT 311 with amylase 96 and lipase 36. Unclear etiology, may be related to a passed gallstone, choledocholithiasis, pancreatitis or other etiology. Current Visit: Yes Status: Acute Code(s): R74.8 - ABNORMAL LEVELS OF OTHER SERUM ENZYMES SNOMED Code(s): 283497879 (2) Abdominal pain Current Visit: Yes Status: Acute Code(s): R10.9 - UNSPECIFIED ABDOMINAL PAIN SNOMED Code(s): 13971834 Plan: Supportive care Okay for liquid diet Continue to monitor CBC, BMP, LFTs Ultrasound of the abdomen ordered and pending, depending on how the patient does clinically, trend of his liver enzymes may require MRCP to rule out choledocholithiasis, however he is very hesitant at this time as he would prefer an open MRI due to anxiety . If liver enzymes normalize and patient is doing well would recommend MRI with and without contrast in 6 weeks for further evaluation of the pancreas as well as to rule out choledocholithiasis, however if liver enzymes worsen or patient continues to have pain recommendation is that he has MRCP prior to discharge to rule out choledocholithiasis. Extensive discussion with the patient regarding findings on imaging and labs with both the patient and his having their questions answered to their satisfaction Continue fluid hydration Continue pain control Thank your for allowing us to participate in the care of the patient
--- NOTE | 2020-12-28 12:29 | P.PN ---
Subjective Progress Note Date: 12/28/20 Principal diagnosis: Elevated LFTs, abdominal pain She was seen and examined at the bedside. He was sitting up in his recliner. He states his abdominal pain has significantly decreased. He denies any nausea or vomiting. He states he is feeling much better. He denies any fever or acute changes through the night. Objective - Vital Signs Vital signs: Vital Signs Temp 97.5 F L 12/28/20 07:28 Pulse 80 12/28/20 07:28 Resp 16 12/28/20 07:28 BP 146/82 12/28/20 07:28 Pulse Ox 100 12/28/20 07:28 Intake & Output 12/27/20 12/28/20 12/28/20 18:59 06:59 18:59 Other: Voiding Method Toilet # Voids 3 1 - Exam General appearance: The patient is alert, oriented, appears in no acute distress. HET: Head is normocephalic and atraumatic. Conjunctiva pink. Sclera anicteric. Neck: Supple without lymphadenopathy. Abdomen: Soft, nontender, nondistended with bowel sounds. No guarding or rigidity. Extremities: Normal skin color and turgor. No pedal edema Skin: No rashes, no jaundice Neurological: No focal deficits. Alert and oriented 3. - Labs CBC & Chem 7: 12/26/20 10:17 12/28/20 05:45 Labs: Abnormal Lab Results - Last 24 Hours (Table) 12/27/20 Range/Units 05:29 BUN/Creatinine Ratio 10.83 L (12.00-20.00) Ratio Total Bilirubin 2.3 H (0.2-1.2) mg/dL AST 200 H (14-35) U/L ALT 311 H (10-49) U/L Alkaline Phosphatase 134 H (41-126) U/L Total Protein 6.0 L (6.2-8.2) g/dL Globulin 1.5 L (1.6-3.3) g/dL Assessment and Plan (1) Abdominal pain Narrative/Plan: This is a 55-year-old male with multiple medical comorbidities including prior cholecystectomy presenting for abdominal pain. Originally pain prior to admission was in the left upper quadrant for the past 2 weeks but then developed sharp significant pain in the right upper quadrant of the abdomen. Computed tomography scan on presentation showed some fluid-filled bowels suggestive of possible enteritis well is some mild biliary dilation and prior cholecystectomy as well as some mild heterogenicity in the head of the pancreas. Liver enzymes normal presentation subsequently increased with total bilirubin 2.3, alkaline phosphatase 134, AST 200 ALT 311 with amylase 96 and lipase 36. Unclear etiology, may be related to a passed gallstone, choledocholithiasis, pa ncreatitis or other etiology. Status: Acute Code(s): R10.9 - UNSPECIFIED ABDOMINAL PAIN SNOMED Code(s): 31992167 (2) Elevated liver enzymes Status: Acute Code(s): R74.8 - ABNORMAL LEVELS OF OTHER SERUM ENZYMES SNOMED Code(s): 633902836 Plan: Supportive care May increase to a low-fat diet Ultrasound of the liver ordered and reviewed Repeat CMP shows trending down of LFTs Patient has significant improvement in pain as well as LFTs, patient may be discharged home with follow-up labs in outpatient setting Patient to follow-up with gastroenterology in 1-2 weeks, consider outpatient MRI in 4-6 weeks Thank You for this consultation Dr. Cooley I agree with the dictator's note, documented as a scribe by Kathe Jacobs.
--- NOTE | 2020-12-28 23:07 | P.DS ---
Providers Date of admission: 12/27/20 11:29 Expected date of discharge: 12/28/20 Attending physician: Tarun Pringle Consults: 12/26/20 11:57 Consult Physician Urgent Consulting Provider: Aaron Cooley Consult Reason/Comments: Abdominal pain, please review CT Do you want consulting provider notified?: Yes Primary care physician: Javy Reveles [facility] Course: Chief Complaint: Not feeling well History of presenting complaint: This is a 55-year-old patient who follows Dr. Viola Reveles. Chronic stable medical conditions include GERD, hyperlipidemia, or strength redness, BPH, smoker. For 2 weeks patient with having some nonspecific abdominal pain. He describes as a pain starting in the left lower quadrant and goes across. Sometimes going upwards 2. Patient not feeling well for last 4 days. Some sometimes has to to stop his work. Has noted increased belching. Denies any fever and chills no nausea vomiting. Appetite has been okay. Normally has one or 2 bowel movements every day. Admitted with abdominal pain. LFTs are bumped up to date. No nausea vomiting. Tired. GI following. Today-LFTs are coming down. No abdominal pain. Discussed with GI. Patient never had a stone in the remnant duct. Advised about the fat diet. Repeat LFTs outpatient follow-up with GI. 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 Dixon from GI Past medical history to include: GERD, hyperlipidemia, osteoporosis, prostate disorder, prediabetic Social history: Smoking since age of 14. About a pack and a half a day. Chronic cutback in the last few weeks. Alcohol occasionally. [employer] and does set up. . Denies use of recreational drugs. Family history: Reviewed, noncontributory to presentation Physical examination: VITAL SIGNS: 97.5, 80, 16, 146/82, 100% room air GENERAL: Sitting up in chair, comfortable EYES: Pupils equal. Conjunctiva normal. HEENT: External appearance of nose and ears normal, oral cavity grossly normal. NECK: JVD not raised; masses not palpable. HEART: First and second heart sounds are normal; no edema. LUNGS: Respiratory rate normal; clear to auscultation. ABDOMEN: Soft, no tenderness, liver spleen not palpable, no masses palpable. PSYCH: Alert and oriented x3; mood and affect normal. INVESTIGATIONS, reviewed in the clinical context: December 28: Potassium 4 creatinine 0.9 total bilirubin 1.7 AST 66 ALT 175 December 27: Potassium 4.3 creatinine 1.2 bilirubin 2.3 AST 200 ALT 311 alkaline phosphatase 134 White count 10.6 hemoglobin 16.4 platelets 252 potassium 4.3 creatinine 1.16 Total bilirubin 1.5 Troponin I less than 0.012 amylase 101 high pains 101 UA negative Coronary minus [PCR]-not detected EKG tracing personally reviewed by me-no sinus rhythm Computed tomography scan of the abdomen and pelvis with contrast-status post cholecystectomy. 6. Question some mild heterogenicity of the density in the head of the pancreas. Some fluid-filled bowel loops present. Assessment and plan: -Acute obstructive hepatitis likely from a bile duct remnant stone. Clinically improved. Repeat CMP as an outpatient and follow-up with GI -GERD, continue Protonix. -Hyperlipidemia -Primary osteoarthritis, use Tylenol when necessary -Chronic nicotine dependence cigarette smoker, nicotine patch Disposition: Home Plan - Discharge Summary Discharge Rx Participant: No New Discharge Prescriptions: Continue Multivitamins, Thera [Multivitamin (formulary)] 1 tab PO DAILY Ibuprofen [Motrin] 600 mg PO Q8HR PRN #30 tab PRN Reason: pain Biotin 2500mcg 1 tab PO DAILY Pantoprazole Sodium [Protonix] 40 mg PO DAILY Discharge Medication List Multivitamins, Thera [Multivitamin (formulary)] 1 tab PO DAILY 01/20/19 [History] Ibuprofen [Motrin] 600 mg PO Q8HR PRN #30 tab 02/18/19 [Rx] Biotin 2500mcg 1 tab PO DAILY 12/26/20 [History] Pantoprazole Sodium [Protonix] 40 mg PO DAILY 12/26/20 [History] Follow up Appointment(s)/Referral(s): Javy Reveles DO [Primary Care Provider] - 1-2 days Aaron Cooley MD [STAFF PHYSICIAN] - 2 Weeks Patient Instructions/Handouts: Acute Abdominal Pain (DC) Activity/Diet/Wound Care/Special Instructions: low fat diet cmp -01/01/2021
== END 2020-12-28 12:42 | disposition home or self-care (01) ==
LOC: EC 09:28 → 6NMEDSUR 11:57 → INTOOBSV 12-27 11:29 → OBSVTOIN 12-27 11:29 → UNDODISIN 12-28 12:42
PROVIDERS: ADMIT Hospitalist; ATTEND Hospitalist
DX: K75.89 Other specified inflammatory liver diseases (principal); K21.9 Gastro-esophageal reflux disease without esophagitis; E78.5 Hyperlipidemia, unspecified; N40.0 Benign prostatic hyperplasia without lower urinary tract symptoms; M81.0 Age-related osteoporosis without current pathological fracture; R73.03 Prediabetes; R79.89 Other specified abnormal findings of blood chemistry; R10.11 Right upper quadrant pain; M19.91 Primary osteoarthritis, unspecified site; F17.210 Nicotine dependence, cigarettes, uncomplicated; Z79.899 Other long term (current) drug therapy; Z20.822 Contact with and (suspected) exposure to COVID-19; Z90.49 Acquired absence of other specified parts of digestive tract; Z79.1 Long term (current) use of non-steroidal anti-inflammatories (NSAID)
CPT/HCPCS: 96376 ×2; 96361 ×3; 96372 ×2; 96375 ×2; 96374; 99285; 36415; 93005; 93306; 80053 ×3; 82150 ×2; 82550; 83690 ×3; 84484; 85025; 85610; 85730; 81003; 87635; 76705; 74177; G0378 ×3; J2270; J1650 ×2; C9113; J1170; Q9950; Q9967

== ENCOUNTER → 2021-01-02 | Outpatient (CLI) | payer OTHER ==
[2021-01-02 22:33] LABS: African American GFR (CKD) 77.3 (60.0-200.0); Albumin 5.5 g/dL (3.80-4.90); Albumin/Globulin Ratio 2.89 (1.60-3.17); Anion Gap 8.9 mmol/L (4.00-12.00); BUN/Creat Ratio 18.33 Ratio (12.00-20.00); Carbon Dioxide 33.1 mmol/L (21.6-31.8); Globulin 1.9 g/dL (1.6-3.3); Non-African American GFR(CKD) 66.7 (60.0-200.0); Potassium 4.2 mmol/L (3.5-5.5); Total Bilirubin 0.9 mg/dL (0.2-1.2); Total Protein 7.4 g/dL (6.2-8.2)
== END | disposition home or self-care (01) ==
LOC: LABWHC1 14:53
PROVIDERS: ATTEND Internal Medicine
DX: K85.90 Acute pancreatitis without necrosis or infection, unspecified (principal)
CPT/HCPCS: 36415; 80053; 82150; 83690

== ENCOUNTER 2021-01-29 10:56 | Emergency (ER) | payer OTHER ==
[2021-01-29 11:25] VITALS: PULSE 79; RESP 18; TEMP 98.5
[2021-01-29] MEDS ORDERED: SODIUM CHLORIDE 0.9% 1,000 ML IV STA (12:16)
[2021-01-29] MEDS ORDERED: ONDANSETRON 4 MG/2 ML VIAL IVP STA (12:16)
[2021-01-29] MEDS ORDERED: HYDROmorphone 0.5 MG/0.5 ML SYRINGE IVP STA (12:16)
[2021-01-29 12:41] VITALS: BP 137/86
[2021-01-29 12:45] LABS: Appearance,Urine Clear (Clear); Bilirubin,Urine Negative (Negative); Blood,Urine Negative (Negative); Color,Urine Light Yellow; Glucose,Urine (UA) Negative (Negative); Ketones,Urine Negative (Negative); Leukocyte Esterase,Urine Negative (Negative); Nitrite,Urine Negative (Negative); Protein,Urine Negative (Negative); Specific Gravity,Urine 1.008 (1.001-1.035); Urobilinogen,Urine <2.0 mg/dL (<2.0)
[2021-01-29 12:46] LABS: Basophils # (A) 0.1 k/uL (0-0.2); Basophils % (A) 1 %; Eosinophils # (A) 0.1 k/uL (0-0.7); Eosinophils % (A) 1 %; HCT 44.9 % (39.0-53.0); HGB 15.4 gm/dL (13.0-17.5); Lymphocytes # (A) 1.6 k/uL (1.0-4.8); Lymphocytes % (A) 16 %; MCH 30.3 pg (25.0-35.0); MCHC 34.4 g/dL (31.0-37.0); MCV 88.1 fL (80.0-100.0); Mean Platelet Volume 6.6; Monocytes # (A) 0.5 k/uL (0-1.0); Monocytes % (A) 5 %; Neutrophils # (A) 7.2 k/uL (1.3-7.7); Neutrophils % (A) 75 %; Platelet Count 239 k/uL (150-450); RBC 5.09 m/uL (4.30-5.90); RDW 12.8 % (11.5-15.5); WBC 9.7 k/uL (3.8-10.6)
[2021-01-29 12:54] LABS: Albumin 4.6 g/dL (3.5-5.0); Calcium 9.7 mg/dL (8.4-10.2); Potassium 4.3 mmol/L (3.5-5.1); Total Bilirubin 0.9 mg/dL (0.2-1.3); Total Protein 7.2 g/dL (6.3-8.2)
--- NOTE | 2021-01-29 13:05 | ED ---
General Adult HPI - General Source: patient, RN notes reviewed Mode of arrival: ambulatory <Kody Best - Last Filed: 01/29/21 13:21> <Dianna Cunningham - Last Filed: 01/30/21 23:00> - General Chief complaint: Recheck/Abnormal Lab/Rx Stated complaint: revisit - chest/epigastric pain Time Seen by Provider: 01/29/21 11:56 - History of Present Illness Initial comments: 55-year-old male with a past medical history of GERD, hyperlipidemia, cholecystectomy presents to the emergency department for epigastric pain. This pain is been ongoing for the past 6 weeks. He was supposed to get an MRI today at an open MRI Center but was too claustrophobic so could not do so. He did not know what to do so came to the ER. No nausea vomiting. No diarrhea. No fevers. On previous admission CT showed mild biliary dilation. Liver enzymes are elevated but then became more clear. Outpatient recommendation was MRI to evaluate the pancreas as well as rule out choledocholelithiasis. Patient has no other complaints at this time including shortness of breath, chest pain, nausea or vomiting, headache, or visual changes. (Kody Best) - Related Data Home Medications Medication Instructions Recorded Confirmed Multivitamins, Thera [Multivitamin 1 tab PO DAILY 01/20/19 01/29/21 (formulary)] Biotin 2,500 mcg PO DAILY 01/29/21 01/29/21 Dicyclomine [Bentyl] 20 mg PO QID PRN 01/29/21 01/29/21 Omeprazole 20 mg PO BID 01/29/21 01/29/21 Allergies Allergy/AdvReac Type Severity Reaction Status Date / Time No Known Allergies Allergy Verified 01/29/21 12:42 Review of Systems ROS Other: All systems not noted in ROS Statement are negative. <Kody Best - Last Filed: 01/29/21 13:21> ROS Other: All systems not noted in ROS Statement are negative. <Dianna Cunningham - Last Filed: 01/30/21 23:00> ROS Statement: Those systems with pertinent positive or pertinent negative responses have been documented in the HPI. Past Medical History Past Medical History: GERD/Reflux, Hyperlipidemia, Osteoarthritis (OA), Prostate Disorder Additional Past Medical History / Comment(s): "Prediabetic." History of Any Multi-Drug Resistant Organisms: None Reported Past Surgical History: Cholecystectomy, Hernia Repair Additional Past Surgical History / Comment(s): Bilateral hernia repair, pilon odial cyst removed, colonoscopy. Past Anesthesia/Blood Transfusion Reactions: No Reported Reaction Past Psychological History: No Psychological Hx Reported Smoking Status: Current some day smoker Past Alcohol Use History: Occasional Past Drug Use History: None Reported - Past Family History Mother Family Medical History: No Reported History <Kody Best - Last Filed: 01/29/21 13:21> General Exam General appearance: alert, in no apparent distress Eye exam: Present: normal appearance, PERRL, EOMI. Absent: scleral icterus, conjunctival injection, periorbital swelling ENT exam: Present: normal exam, mucous membranes moist Neck exam: Present: normal inspection, full ROM. Absent: tenderness, meningismus, lymphadenopathy Respiratory exam: Present: normal lung sounds bilaterally. Absent: respiratory distress, wheezes, rales, rhonchi, stridor Cardiovascular Exam: Present: regular rate, normal rhythm, normal heart sounds. Absent: systolic murmur, diastolic murmur, rubs, gallop, clicks GI/Abdominal exam: Present: soft, tenderness (Epigastric and right upper quadrant tenderness), normal bowel sounds. Absent: distended, guarding, rebound, rigid Neurological exam: Present: alert <Kody Best - Last Filed: 01/29/21 13:21> Course Vital Signs 01/29/21 01/29/21 11:23 12:40 Temperature 98.5 F Pulse Rate 79 79 Respiratory 18 18 Rate Blood Pressure 140/80 137/86 O2 Sat by Pulse 98 100 Oximetry Medical Decision Making - Lab Data Result diagrams: 01/29/21 12:22 01/29/21 12:22 <Kody Best - Last Filed: 01/29/21 13:21> - Lab Data Result diagrams: 01/29/21 12:22 01/29/21 12:22 <Dianna Cunningham - Last Filed: 01/30/21 23:00> - Medical Decision Making Vitals are stable. CBC CMP unremarkable. Liver enzymes are normal. Pancreatic enzymes normal. Urinalysis negative. Patient has had this pain ongoing for 6 weeks. He did call GI and they scheduled him for another MRI with sedation in 2 weeks. Patient was given pain medication and did have significant improvement in symptoms. He will follow up with GI. He does have another MRI scheduled now in 2 weeks. He will return hre for any worsening symptoms. (Kody Best) I was available for consultation in the emergency department. The history and physical exam were done by the midlevel provider. I was consulted for this patients care. I reviewed the case with the midlevel provider and based on their presentation of the patient, I agree with the assessment, medical decision making and plan of care as documented. Chart was dictated using [employer] dictation software. Attempts were made to correct any dictation errors however some typographical errors may persist. (Dianna Cunningham) - Lab Data Lab Results 01/29/21 01/29/21 01/29/21 Range/Units 12:22 12:22 12:22 WBC 9.7 (3.8-10.6) k/uL RBC 5.09 (4.30-5.90) m/uL Hgb 15.4 (13.0-17.5) gm/dL Hct 44.9 (39.0-53.0) % MCV 88.1 (80.0-100.0) fL MCH 30.3 (25.0-35.0) pg MCHC 34.4 (31.0-37.0) g/dL RDW 12.8 (11.5-15.5) % Plt Count 239 (150-450) k/uL MPV 6.6 Neutrophils % 75 % Lymphocytes % 16 % Monocytes % 5 % Eosinophils % 1 % Basophils % 1 % Neutrophils # 7.2 (1.3-7.7) k/uL Lymphocytes # 1.6 (1.0-4.8) k/uL Monocytes # 0.5 (0-1.0) k/uL Eosinophils # 0.1 (0-0.7) k/uL Basophils # 0.1 (0-0.2) k/uL Sodium 142 (137-145) mmol/L Potassium 4.3 (3.5-5.1) mmol/L Chloride 105 (98-107) mmol/L Carbon Dioxide 28 (22-30) mmol/L Anion Gap 9 mmol/L BUN 16 (9-20) mg/dL Creatinine 1.08 (0.66-1.25) mg/dL Est GFR (CKD-EPI)AfAm 88 (>60 ml/min/1.73 sqM) Est GFR (CKD-EPI)NonAf 76 (>60 ml/min/1.73 sqM) Glucose 124 H (74-99) mg/dL Calcium 9.7 (8.4-10.2) mg/dL Total Bilirubin 0.9 (0.2-1.3) mg/dL AST 28 (17-59) U/L ALT 31 (4-49) U/L Alkaline Phosphatase 91 (38-126) U/L Total Protein 7.2 (6.3-8.2) g/dL Albumin 4.6 (3.5-5.0) g/dL Amylase 93 (30-110) U/L Lipase 74 (23-300) U/L Urine Color Light Yellow Urine Appearance Clear (Clear) Urine pH 8.0 (5.0-8.0) Ur Specific [place] 1.008 (1.001-1.035) Urine Protein Negative (Negative) Urine Glucose (UA) Negative (Negative) Urine Ketones Negative (Negative) Urine Blood Negative (Negative) Urine Nitrite Negative (Negative) Urine Bilirubin Negative (Negative) Urine Urobilinogen <2.0 (<2.0) mg/dL Ur Leukocyte Esterase Negative (Negative) Disposition Is patient prescribed a controlled substance at d/c from ED?: No Time of Disposition: 13:12 <Kody Best P - Last Filed: 01/29/21 13:21> <Dianna Cunningham A - Last Filed: 01/30/21 23:00> Clinical Impression: Abdominal pain Disposition: HOME SELF-CARE Condition: Good Instructions (If sedation given, give patient instructions): Abdominal Pain (ED) Additional Instructions: Please follow up with GI as soon as possible. Return to the emergency room for any worsening symptoms. Referrals: Javy Reveles DO [Primary Care Provider] - 1-2 days Aaron Cooley MD [STAFF PHYSICIAN] - 1-2 days
[2021-01-29] MEDS ORDERED: ACET/COD 300 MG/30 MG STARTER PACK 6 TAB BTL PO STA (13:20)
== END 2021-01-29 13:45 | disposition home or self-care (01) ==
LOC: EC 10:56
DX: R10.13 Epigastric pain (principal); E78.5 Hyperlipidemia, unspecified; K21.9 Gastro-esophageal reflux disease without esophagitis; M19.90 Unspecified osteoarthritis, unspecified site; F17.200 Nicotine dependence, unspecified, uncomplicated; Z90.49 Acquired absence of other specified parts of digestive tract
CPT/HCPCS: 36415; 80053; 82150; 83690; 85025; 81003; 99284; 96374; 96375; J2405; J1170

== ENCOUNTER → 2021-07-10 | Outpatient (CLI) | payer OTHER | END | disposition home or self-care (01) | LOC: LABWHC1 11:10 | PROVIDERS: ATTEND Urology | DX: R35.1 Nocturia (principal) | CPT/HCPCS: 36415; 84153 ==

== ENCOUNTER 2021-08-26 20:49 | Emergency (ER) | payer OTHER ==
--- NOTE | 2021-08-26 21:33 | ED ---
General Adult HPI - General Chief complaint: Abdominal Pain Stated complaint: Epigastric Pain Source: patient Mode of arrival: ambulatory - History of Present Illness Initial comments: Patient presents to the ED complaining of having epigastric abdominal pain that started about an hour and a half ago. Patient states that his pain began shortly after after taking a Tylenol #3 and drinking some chicken broth. Patient states that he has had left upper quadrant abdominal pain radiating to his back for the past 3 weeks or so, and he states that he has an appointment scheduled to see Dr. Crow (GI) in 2 days for further evaluation of this pain. Patient states that his epigastric pain today is distinctly different than his LUQ abdominal pain. Patient denies alcohol abuse, trauma or injury, fever or chills, headache, focal neuro deficit, chest pain or pressure, neck/arm/jaw/back pain, pleuritic pain, cough or cold symptoms, dyspnea, palpitations, dizziness, nausea or vomiting, diarrhea or constipation, bloody or melanotic stool, dysuria or urinary symptoms, or any other symptoms or complaints. Patient states that his pain has improved significantly since onset. - Related Data Home Medications Medication Instructions Recorded Confirmed Multivitamins, Thera [Multivitamin 1 tab PO DAILY 01/20/19 08/26/21 (formulary)] Biotin [Biotin Disolve] 2,500 mcg PO DAILY 01/29/21 08/26/21 Omeprazole 20 mg PO BID 01/29/21 08/26/21 Amitriptyline HCl [Elavil] 25 mg PO HS 08/26/21 08/26/21 Allergies Allergy/AdvReac Type Severity Reaction Status Date / Time No Known Allergies Allergy Verified 08/26/21 22:03 Review of Systems ROS Statement: Those systems with pertinent positive or pertinent negative responses have been documented in the HPI. ROS Other: All systems not noted in ROS Statement are negative. Past Medical History Past Medical History: GERD/Reflux, Hyperlipidemia, Osteoarthritis (OA), Prostate Disorder Additional Past Medical History / Comment(s): "Prediabetic.", pancreatitis History of Any Multi-Drug Resistant Organisms: None Reported Past Surgical History: Cholecystectomy, Hernia Repair Additional Past Surgical History / Comment(s): Bilateral hernia repair, pilonodial cyst removed, colonoscopy. Past Anesthesia/Blood Transfusion Reactions: No Reported Reaction Past Psychological History: No Psychological Hx Reported Smoking Status: Current some day smoker Past Alcohol Use History: Occasional Past Drug Use History: None Reported - Past Family History Mother Family Medical History: No Reported History General Exam Limitations: no limitations General appearance: alert, in no apparent distress Head exam: Present: atraumatic, normocephalic Eye exam: Present: normal appearance, EOMI ENT exam: Present: mucous membranes moist Neck exam: Present: other (Trachea is in midline) Respiratory exam: Present: normal lung sounds bilaterally. Absent: respiratory distress, wheezes, rales, rhonchi, stridor Cardiovascular Exam: Present: regular rate, normal rhythm, normal heart sounds, other (Normal radial pulses bilaterally) GI/Abdominal exam: Present: soft, normal bowel sounds, other (Mild epigastric abdominal tenderness). Absent: distended, guarding, rebound Extremities exam: Absent: tenderness, pedal edema, calf tenderness Back exam: Absent: tenderness, CVA tenderness (R), CVA tenderness (L) Neurological exam: Present: alert, oriented X3. Absent: motor sensory deficit Psychiatric exam: Present: normal affect, normal mood Skin exam: Present: warm, dry, intact, normal color Course Vital Signs 08/26/21 20:57 Temperature 97.5 F L Pulse Rate 103 H Respiratory 22 Rate Blood Pressure 139/88 O2 Sat by Pulse 100 Oximetry - Reevaluation(s) Reevaluation #1: 08/26/21 23:05 Patient states that his pain has now subsided significantly. Patient's abdomen is now soft and completely nontender on examination. Patient is aware of his test results, and he feels comfortable being discharged home at this time. Patient was counseled about abdominal pain and elevated LFTs. Patient was clearly explained return and follow-up instructions, and he feels comfortable with this plan. Patient was instructed to have a low threshold for return to the emergency room should his symptoms return or worsen. Patient was also instructed to follow up closely with his primary care provider, as well as Dr. Crow (GI) in 2 days as scheduled. Medical Decision Making - Medical Decision Making Patient has a soft and nonsurgical abdominal exam. Patient is afebrile and without leukocytosis. Patient's CT abdomen/pelvis with IV contrast is negative. Given the patient's pain and mildly elevated LFTs, I suspect that the patient's pain may be secondary to biliary tract dysfunction. Patient is status post cholecystectomy, and he states that his gallbladder was removed 2 years ago. Patient has an appointment scheduled to see Dr. Crow (GI) in 2 days, which he states he will be certain to make. Will discharge patient home at this time. Patient was clearly explained return and follow-up instructions. Patient feels comfortable with this plan. - Lab Data Result diagrams: 08/26/21 21:38 08/26/21 21:38 Lab Results 08/26/21 08/26/21 Range/Units 21:38 21:38 WBC 9.1 (3.8-10.6) k/uL RBC 5.09 (4.30-5.90) m/uL Hgb 15.0 (13.0-17.5) gm/dL Hct 44.8 (39.0-53.0) % MCV 88.1 (80.0-100.0) fL MCH 29.5 (25.0-35.0) pg MCHC 33.5 (31.0-37.0) g/dL RDW 12.8 (11.5-15.5) % Plt Count 223 (150-450) k/uL MPV 6.7 Neutrophils % 62 % Lymphocytes % 27 % Monocytes % 5 % Eosinophils % 2 % Basophils % 1 % Neutrophils # 5.6 (1.3-7.7) k/uL Lymphocytes # 2.5 (1.0-4.8) k/uL Monocytes # 0.4 (0-1.0) k/uL Eosinophils # 0.2 (0-0.7) k/uL Basophils # 0.1 (0-0.2) k/uL Sodium 138 (137-145) mmol/L Potassium 4.1 (3.5-5.1) mmol/L Chloride 100 (98-107) mmol/L Carbon Dioxide 28 (22-30) mmol/L Anion Gap 10 mmol/L BUN 16 (9-20) mg/dL Creatinine 1.17 (0.66-1.25) mg/dL Est GFR (CKD-EPI)AfAm 80 (>60 ml/min/1.73 sqM) Est GFR (CKD-EPI)NonAf 69 (>60 ml/min/1.73 sqM) Glucose 107 H (74-99) mg/dL Calcium 9.7 (8.4-10.2) mg/dL Total Bilirubin 2.3 H (0.2-1.3) mg/dL AST 386 H (17-59) U/L ALT 194 H (4-49) U/L Alkaline Phosphatase 128 H (38-126) U/L Total Protein 7.5 (6.3-8.2) g/dL Albumin 4.7 (3.5-5.0) g/dL Amylase 91 (30-110) U/L Lipase 162 (23-300) U/L - Radiology Data Radiology results: report reviewed (CT abdomen/pelvis with IV contrast: Negative CT scan abdomen and pelvis. No adverse change compared to old exam. Normal appendix.) Disposition Clinical Impression: Abdominal pain, Elevated LFTs Disposition: HOME SELF-CARE Condition: Stable Instructions (If sedation given, give patient instructions): Abdominal Pain (ED) Additional Instructions: Return to the ER immediately should you develop new or worsening pain, a fever, vomiting, feeling dizzy or faint, shortness of breath, or new or worsening symptoms. Follow up with your primary care provider, as well as Dr. Crow (GI) in 2 days as scheduled. Is patient prescribed a controlled substance at d/c from ED?: No Referrals: Javy Reveles DO [Primary Care Provider] - 1-2 days Marianela Crow MD [STAFF PHYSICIAN] - 1-2 days Time of Disposition: 23:11
[2021-08-26] MEDS ORDERED: MAG HYDROX/AL HYDROX/SIMETH 30 ML, HYOSCYAMINE ELIXIR 10 ML, LIDOCAINE VISCOUS 2% 10 ML PO STA ×3 (21:42)
[2021-08-26 22:00] LABS: Basophils # (A) 0.1 k/uL (0-0.2); Basophils % (A) 1 %; Eosinophils # (A) 0.2 k/uL (0-0.7); Eosinophils % (A) 2 %; HCT 44.8 % (39.0-53.0); Lymphocytes # (A) 2.5 k/uL (1.0-4.8); Lymphocytes % (A) 27 %; MCH 29.5 pg (25.0-35.0); MCHC 33.5 g/dL (31.0-37.0); MCV 88.1 fL (80.0-100.0); Mean Platelet Volume 6.7; Monocytes # (A) 0.4 k/uL (0-1.0); Monocytes % (A) 5 %; Neutrophils # (A) 5.6 k/uL (1.3-7.7); Neutrophils % (A) 62 %; Platelet Count 223 k/uL (150-450); RBC 5.09 m/uL (4.30-5.90); RDW 12.8 % (11.5-15.5); WBC 9.1 k/uL (3.8-10.6)
[2021-08-26 22:09] LABS: Albumin 4.7 g/dL (3.5-5.0); Calcium 9.7 mg/dL (8.4-10.2); Potassium 4.1 mmol/L (3.5-5.1); Total Bilirubin 2.3 mg/dL (0.2-1.3); Total Protein 7.5 g/dL (6.3-8.2)
[2021-08-26] MEDS ORDERED: SODIUM CHLORIDE 0.9% 1,000 ML IV ONE (22:24)
--- NOTE | 2021-08-26 22:56 | CT ---
EXAMINATION TYPE: CT abdomen pelvis w con DATE OF EXAM: 08/26/2021 COMPARISON: 12/26/2020 HISTORY: pain CT DLP: 693.7 mGycm Automated exposure control for dose reduction was used. CONTRAST: Performed with IV Contrast, patient injected with 100 mL of Isovue 300. Lung bases are clear. There is no pleural effusion. Heart size is normal. There is no pericardial eff usion. Liver spleen stomach pancreas appear intact. Bile ducts are not dilated. Gallbladder is absent. There is no adrenal mass. Kidneys show satisfactory contrast opacification. There is no hydronephrosi s. Ureters are not dilated. Appendix is anterior and appears normal. There is no mesenteric edema. There is no ascites or free air. There is no sign of a bowel obstructio n. Bladder distends smoothly. There is some prostate calcification. Prostate measures 5 cm. There is no inguinal hernia. There is no free fluid in the pelvis. IMPRESSION: Lumbar vertebra have normal alignment. Posterior elements are intact. There is no compression fractur e. The bony pelvis is intact. Hip joints are intact. IMPRESSION: Negative CT scan abdomen and pelvis. No adverse change compared to old exam. Normal appendix.
[2021-08-26 23:24] VITALS: BP 138/81; PULSE 94; RESP 20; TEMP 98.1
== END 2021-08-26 23:24 | disposition home or self-care (01) ==
LOC: EC 20:49
DX: R10.13 Epigastric pain (principal); R79.89 Other specified abnormal findings of blood chemistry; E78.5 Hyperlipidemia, unspecified; K21.9 Gastro-esophageal reflux disease without esophagitis; M19.90 Unspecified osteoarthritis, unspecified site; F17.200 Nicotine dependence, unspecified, uncomplicated; Z79.899 Other long term (current) drug therapy; Z90.49 Acquired absence of other specified parts of digestive tract
CPT/HCPCS: 36415; 80053; 82150; 83690; 85025; 74177; 99284; 96360; Q9967

== ENCOUNTER → 2021-09-07 | Outpatient (CLI) | payer OTHER ==
[2021-09-07 16:55] LABS: African American GFR (CKD) 85.9 (60.0-200.0); Albumin 4.8 g/dL (3.8-4.9); Albumin/Globulin Ratio 2.09 (1.60-3.17); Anion Gap 13.5 mmol/L (4.00-12.00); BUN/Creat Ratio 19.36 Ratio (12.00-20.00); Blood Urea Nitrogen 21.3 mg/dL (9.0-27.0); Calcium 9.7 mg/dL (8.7-10.3); Carbon Dioxide 26.5 mmol/L (21.6-31.8); Globulin 2.3 g/dL (1.6-3.3); Non-African American GFR(CKD) 74.1 (60.0-200.0); Potassium 4.8 mmol/L (3.5-5.5); Total Bilirubin 0.7 mg/dL (0.30-1.20); Total Protein 7.1 g/dL (6.2-8.2)
== END | disposition home or self-care (01) ==
LOC: LABWHC1 10:34
PROVIDERS: ATTEND Internal Medicine Gastroenterology
DX: R10.13 Epigastric pain (principal)
CPT/HCPCS: 36415; 80053

== ENCOUNTER 2022-10-06 14:49 | Emergency (ER) | payer BC ==
[2022-10-06 15:04] VITALS: BP 123/77; PULSE 71; RESP 18; TEMP 99.5
[2022-10-06] MEDS ORDERED: KETOROLAC 15 MG/ML 1 ML VIAL IM STA (15:53)
[2022-10-06] MEDS ORDERED: SODIUM CHLORIDE 0.9% 500 ML 500 ML IV STA (16:01)
--- NOTE | 2022-10-06 16:01 | ED ---
General Adult HPI - General Chief complaint: Upper Respiratory Infection Stated complaint: sore throat covid + Time Seen by Provider: 10/06/22 15:46 Source: patient, RN notes reviewed, old records reviewed Mode of arrival: ambulatory Limitations: no limitations - History of Present Illness Initial comments: This is a nontoxic-appearing 57-year-old male presents to the emergency room with body aches, sore throat, fever and chills that started yesterday. He did test positive for coronavirus at home. He has been vaccinated and boosted 4. Does have history of GERD, hypertension. States was having problems with kidney function however believes it has improved. Denies cigarette smoking but does vape. -: days(s) (2) Location: head, neck (sore throat) Severity scale (1-10): 6 Quality: constant Consistency: constant Associated Symptoms: fever/chills, headaches, malaise Treatments Prior to Arrival: other (Cold and flu medication) - Related Data Home Medications Medication Instructions Recorded Confirmed Multivitamins, Thera [Multivitamin 1 tab PO DAILY 01/20/19 08/26/21 (formulary)] Biotin [Biotin Disolve] 2,500 mcg PO DAILY 01/29/21 08/26/21 Omeprazole 20 mg PO BID 01/29/21 08/26/21 Amitriptyline HCl [Elavil] 25 mg PO HS 08/26/21 08/26/21 Previous Rx's Medication Instructions Recorded Nirmatrelvir/Ritonavir [Paxlovid 1 pack PO BID 5 Days #1 pack 10/06/22 300-100 mg Pack (Eua)] Allergies Allergy/AdvReac Type Severity Reaction Status Date / Time No Known Allergies Allergy Verified 10/06/22 15:04 Review of Systems ROS Statement: Those systems with pertinent positive or pertinent negative responses have been documented in the HPI. ROS Other: All systems not noted in ROS Statement are negative. Past Medical History Past Medical History: GERD/Reflux, Hyperlipidemia, Osteoarthritis (OA), Prostate Disorder Additional Past Medical History / Comment(s): "Prediabetic.", pancreatitis History of Any Multi-Drug Resistant Organisms: None Reported Past Surgical History: Cholecystectomy, Hernia Repair Additional Past Surgical History / Comment(s): Bilateral hernia repair, pilonodial cyst removed, colonoscopy. Past Anesthesia/Blood Transfusion Reactions: No Reported Reaction Past Psychological History: No Psychological Hx Reported Smoking Status: Current some day smoker Past Alcohol Use History: Occasional Past Drug Use History: None Reported - Past Family History Mother Family Medical History: No Reported History General Exam Limitations: no limitations General appearance: alert, in no apparent distress Head exam: Present: atraumatic Eye exam: Absent: scleral icterus, conjunctival injection, periorbital swelling ENT exam: Present: mucous membranes moist Expanded Mouth exam: Present: tongue normal, tongue elevation. Absent: drooling, trismus, muffled voice Throat exam: other (Posterior oropharynx erythema) Neck exam: Present: tenderness, full ROM. Absent: meningismus, lymphadenopathy Respiratory exam: Present: rales (bilateral bases). Absent: respiratory distress, wheezes, rhonchi, stridor, chest wall tenderness, accessory muscle use Cardiovascular Exam: Present: regular rate GI/Abdominal exam: Present: soft Back exam: Present: normal inspection, full ROM. Absent: tenderness, CVA tenderness (R), CVA tenderness (L), rash noted Neurological exam: Present: alert, oriented X3, normal gait Psychiatric exam: Present: normal affect, normal mood Skin exam: Present: warm, dry, normal color. Absent: cyanosis, diaphoretic, petechiae, pallor Course Vital Signs 10/06/22 10/06/22 14:57 15:24 Temperature 99.5 F Pulse Rate 71 Respiratory 18 18 Rate Blood Pressure 123/77 O2 Sat by Pulse 97 Oximetry Medical Decision Making - Medical Decision Making Patient presents to the emergency room with complaints of headache, bodyaches, and sore throat that started yesterday. States took at home Covid test that was positive. Has been vaccinated and boosted 4. Requesting Paxlovid. Labs show mild leukocytosis of 11.1. Electrolytes unremarkable. GFR >90 Chest x-ray interpreted by me shows no acute cardiopulmonary process. Radiologist impression normal chest no change compared to and July 2013. Patient was given IV fluids, Toradol for his discomfort. Was requesting paxlovid to help shorten the duration of his illness which was provided. Discharge home and directed to increase his fluid intake. Tylenol and/or Motrin as needed for any pain or discomfort. Vitamin C, Vitamin D and zinc daily. Follow-up with primary care doctor next week. Return to the emergency room with any new or concerning symptoms. Case discussed with Dr. Villarreal - Lab Data Result diagrams: 10/06/22 16:38 10/06/22 16:38 Lab Results 10/06/22 10/06/22 Range/Units 16:38 16:38 WBC 11.4 H (3.8-10.6) k/uL RBC 5.00 (4.30-5.90) m/uL Hgb 14.7 (13.0-17.5) gm/dL Hct 42.8 (39.0-53.0) % MCV 85.6 (80.0-100.0) fL MCH 29.3 (25.0-35.0) pg MCHC 34.3 (31.0-37.0) g/dL RDW 12.8 (11.5-15.5) % Plt Count 217 (150-450) k/uL MPV 7.3 Neutrophils % 82 % Lymphocytes % 8 % Monocytes % 7 % Eosinophils % 1 % Basophils % 2 % Neutrophils # 9.4 H (1.3-7.7) k/uL Lymphocytes # 0.9 L (1.0-4.8) k/uL Monocytes # 0.8 (0-1.0) k/uL Eosinophils # 0.1 (0-0.7) k/uL Basophils # 0.2 (0-0.2) k/uL Sodium 135 L (137-145) mmol/L Potassium 4.6 (3.5-5.1) mmol/L Chloride 100 (98-107) mmol/L Carbon Dioxide 25 (22-30) mmol/L Anion Gap 10 mmol/L BUN 18 (9-20) mg/dL Creatinine 1.00 (0.66-1.25) mg/dL Est GFR (CKD-EPI)AfAm >90 (>60 ml/min/1.73 sqM) Est GFR (CKD-EPI)NonAf 82 (>60 ml/min/1.73 sqM) Glucose 132 H (74-99) mg/dL Calcium 9.0 (8.4-10.2) mg/dL Magnesium 1.8 (1.6-2.3) mg/dL Total Bilirubin 0.8 (0.2-1.3) mg/dL AST 29 (17-59) U/L ALT 19 (4-49) U/L Alkaline Phosphatase 52 (38-126) U/L Total Protein 7.5 (6.3-8.2) g/dL Albumin 4.7 (3.5-5.0) g/dL Disposition Clinical Impression: COVID-19 Disposition: HOME SELF-CARE Instructions (If sedation given, give patient instructions): Upper Respiratory Infection (ED), COVID-19 (Coronavirus Disease 2019) (ED) Additional Instructions: Increase your fluid intake. Tylenol and/or Motrin as needed for any body aches or pains. Take the Paxlovid as prescribed for the next 5 days. Follow-up with the primary care doctor this week. Return to the emergency room with any new or concerning symptoms. Prescriptions: Nirmatrelvir/Ritonavir [Paxlovid 300-100 mg Pack (Eua)] 1 pack PO BID 5 Days #1 pack Is patient prescribed a controlled substance at d/c from ED?: No Referrals: Javy Reveles DO [Primary Care Provider] - 1-2 days Time of Disposition: 17:15
[2022-10-06] MEDS ORDERED: KETOROLAC 15 MG/ML 1 ML VIAL IVP STA (16:02)
[2022-10-06 16:47] LABS: Basophils # (A) 0.2 k/uL (0-0.2); Basophils % (A) 2 %; Eosinophils # (A) 0.1 k/uL (0-0.7); Eosinophils % (A) 1 %; HCT 42.8 % (39.0-53.0); HGB 14.7 gm/dL (13.0-17.5); Lymphocytes # (A) 0.9 k/uL (1.0-4.8); Lymphocytes % (A) 8 %; MCH 29.3 pg (25.0-35.0); MCHC 34.3 g/dL (31.0-37.0); MCV 85.6 fL (80.0-100.0); Mean Platelet Volume 7.3; Monocytes # (A) 0.8 k/uL (0-1.0); Monocytes % (A) 7 %; Neutrophils # (A) 9.4 k/uL (1.3-7.7); Neutrophils % (A) 82 %; Platelet Count 217 k/uL (150-450); RDW 12.8 % (11.5-15.5); WBC 11.4 k/uL (3.8-10.6)
--- NOTE | 2022-10-06 16:49 | XR ---
EXAMINATION TYPE: XR chest 2V DATE OF EXAM: 10/06/2022 COMPARISON: 08/13/2013 HISTORY: Cough and fever TECHNIQUE: FINDINGS: Heart and mediastinum are normal. Lungs are clear. Diaphragm is normal. Bony thorax is inta ct. IMPRESSION: Normal chest. No change.
[2022-10-06 16:58] LABS: ALT 19 U/L (4-49); African American GFR (CKD) >90 (>60 ml/min/1.73 sqM); Albumin 4.7 g/dL (3.5-5.0); Anion Gap 10 mmol/L; Blood Urea Nitrogen 18 mg/dL (9-20); Carbon Dioxide 25 mmol/L (22-30); Chloride 100 mmol/L (98-107); Glucose 132 mg/dL (74-99); Non-African American GFR(CKD) 82 (>60 ml/min/1.73 sqM); Sodium 135 mmol/L (137-145); Total Bilirubin 0.8 mg/dL (0.2-1.3); Total Protein 7.5 g/dL (6.3-8.2)
[2022-10-06 17:11] LABS: AST 29 U/L (17-59); Alkaline Phosphatase 52 U/L (38-126); Magnesium 1.8 mg/dL (1.6-2.3); Potassium 4.6 mmol/L (3.5-5.1)
== END 2022-10-06 17:29 | disposition home or self-care (01) ==
LOC: EC 14:49
DX: U07.1 COVID-19 (principal); K21.9 Gastro-esophageal reflux disease without esophagitis; E78.5 Hyperlipidemia, unspecified; M19.90 Unspecified osteoarthritis, unspecified site; F17.200 Nicotine dependence, unspecified, uncomplicated; Z79.83 Long term (current) use of bisphosphonates; Z79.899 Other long term (current) drug therapy
CPT/HCPCS: 36415; 80053; 83735; 85025; 71046; 99283; 96374; 96361; J1885

== ENCOUNTER → 2023-07-30 | Outpatient (CLI) | payer BC | END | disposition home or self-care (01) | LOC: LABWHC1 13:42 | PROVIDERS: ATTEND Urology | DX: Z12.5 Encounter for screening for malignant neoplasm of prostate (principal); R35.0 Frequency of micturition | CPT/HCPCS: 36415; G0103 ==

== ENCOUNTER → 2024-08-03 | Outpatient (CLI) | payer BC ==
[2024-08-03 15:31] LABS: Basophils % (A) 1.4 %; Eosinophils # (A) 0.22 X 10*3/uL (0.04-0.35); Eosinophils % (A) 3.1 %; HCT 46.2 % (39.6-50.0); HGB 15.2 g/dL (13.0-17.0); Lymphocytes # (A) 1.88 X 10*3/uL (0.90-5.00); Lymphocytes % (A) 26.1 %; MCH 29.3 pg (27.0-32.0); MCHC 32.9 g/dL (32.0-37.0); MCV 89.2 FL (80.0-97.0); Mean Platelet Volume 10.5 FL (9.5-12.2); Monocytes # (A) 0.48 X 10*3/uL (0.20-1.00); Monocytes % (A) 6.7 %; NRBC Per 100 WBC 0 X 10*3/uL (0.00-0.01); Neutrophils # (A) 4.51 X 10*3/uL (1.80-7.70); Neutrophils % (A) 62.4 %; Platelet Count 247 X 10*3/uL (140-440); RBC 5.18 X 10*6/uL (4.40-5.60); RDW 12.5 % (11.5-14.5); WBC 7.21 X 10*3/uL (4.50-10.00)
[2024-08-03 15:40] LABS: ALT 27 U/L (10-49); AST 17 U/L (14-35); Albumin 4.8 g/dL (3.8-4.9); Albumin/Globulin Ratio 1.85 Ratio (1.60-3.17); Alkaline Phosphatase 71 U/L (41-126); BUN/Creat Ratio 16.73 Ratio (12.00-20.00); Blood Urea Nitrogen 18.4 mg/dL (9.0-27.0); Calcium 9.9 mg/dL (8.7-10.3); Carbon Dioxide 28.5 mmol/L (21.6-31.8); Chloride 102 mmol/L (96-109); Globulin 2.6 g/dL (1.6-3.3); Glucose 118 mg/dL (70-110); Lipase 24 U/L (14-60); Potassium 4.6 mmol/L (3.5-5.5); Sodium 142 mmol/L (135-145); Total Bilirubin 1.2 mg/dL (0.3-1.2); Total Protein 7.4 g/dL (6.2-8.2)
== END | disposition home or self-care (01) ==
LOC: LABWHC1 09:21
PROVIDERS: ATTEND Nurse Practitioner Family
DX: R10.13 Epigastric pain (principal)
CPT/HCPCS: 36415; 80053; 83690; 85025